=== PATIENT | male | born 1965 | race Caucasian/White ===

== ENCOUNTER 2021-08-31 09:30 | Outpatient (REF) | payer OTHER, SELFPAY ==
[2021-08-31 11:38] LABS: MANUAL DIFF FLAG NO
[2021-08-31 11:50] LABS: Basophils Absolute Auto 0.1 X10*3/uL (0.0-0.2); Basophils Percent Auto 1.1 % (0-2); Eosinophils Absolute Auto 0.2 X10*3/uL (0.0-0.4); Eosinophils Percent Auto 2.8 % (0-4); Hematocrit 47.2 % (42.0-52.0); Hemoglobin 15.8 g/dl (14.0-18.0); Imm Gran Abs Auto 0.04 X10*3/uL (0.00-0.03); Imm Gran Pct Auto 0.6 % (0.0-0.4); Lymphocytes Absolute Auto 2.5 X10*3/uL (1.2-4.9); Lymphocytes Percent Auto 37.9 % (20-40); Mean Corpuscular HGB Conc 33.5 g/dl (31.0-36.0); Mean Corpuscular Volume 89.7 fL (80.0-98.0); Mean Platelet Volume 9.7 fL (9.4-12.4); Monocytes Absolute Auto 0.7 X10*3/uL (0.1-1.2); Monocytes Percent Auto 10.6 % (2-11); Neutrophils Absolute Auto 3.1 x10*3/uL (2.0-8.3); Platelet Count 352 X10*3/uL (160-400); Red Blood Count 5.26 X10*6/uL (4.60-5.80); Red Cell Distribution Width 12.8 % (11.0-16.0); White Blood Count 6.5 X10*3/uL (4.8-10.8)
[2021-08-31 12:00] LABS: Appearance Urine HAZY; Color Urine YELLOW; Glucose Urine UA NEG (NEG); Leukocyte Esterase Urine NEG (NEG); Nitrite Urine NEG (NEG); PH 5.5 (5.0-8.0); Specific Gravity - Urine >= 1.030 (1.005-1.025); Urine Blood NEG (NEG); Urine Ketones NEG (NEG); Urine Protein NEG (NEG-TRACE)
[2021-08-31 12:12] LABS: Alanine Aminotransferase 33 U/L (0-40); Albumin Level 4.2 g/dL (3.5-5.0); Alkaline Phosphatase 82 U/L (39-117); Anion Gap 14 (12-20); Aspartate Amino Transferase 23 U/L (5-37); Bilirubin Total 0.9 mg/dL (0.0-1.0); Blood Urea Nitrogen 12 mg/dL (9-16); Calcium 9.6 mg/dL (8.4-10.2); Carbon Dioxide 26 mmol/L (22-29); Chloride 102 mmol/L (96-108); Cholesterol 309 mg/dL; Estimated Glomerular Filt Rate > 60; Glucose Fasting 127 mg/dL (60-99); HDL Cholesterol 52 mg/dL; LDL Cholesterol Calculated 218 mg/dl; Potassium 4.6 mmol/L (3.3-5.1); Sodium 137 mmol/L (135-145); Total Protein 7.2 g/dL (6.5-8.0); Triglycerides 199 mg/dL
[2021-08-31 12:24] LABS: Prostate Specific Antigen Scr 1.02 ng/mL (<0.05-4.0); TSH reflex Free T4 2.19 uIU/mL (0.32-4.0)
[2021-08-31 12:26] LABS: Creatinine Urine 166.82 mg/dL; Microalbum/Creatinine Ratio Ur 11.9 ug/mg cr
== END 2021-08-31 09:31 | disposition home or self-care (01) ==
LOC: HO.WFDLDS 09:30
PROVIDERS: Visit Provider Family Medicine
DX: Z00.00 Encounter for general adult medical examination without abnormal findings (principal); Z12.5 Encounter for screening for malignant neoplasm of prostate; I10 Essential (primary) hypertension
CPT/HCPCS: 36415; 80053; 80061; 81003; 82043; 84153; 84443; 85025

== ENCOUNTER → 2021-11-09 11:20 | Outpatient (BNVA) | payer OTHER, SELFPAY | PROVIDERS: PCP Family Medicine; Referring Provider Family Medicine; Visit Provider Nurse Practitioner | DX: G47.33 Obstructive sleep apnea (adult) (pediatric) (principal) ==

== ENCOUNTER 2022-03-15 09:09 | Day surgery (SDC) | payer OTHER, SELFPAY ==
[2022-03-13 09:08] VITALS: BMI 40.3
[2022-03-15 09:27] VITALS: BP 177/85; PULSE 87; RESP 18; TEMP 36.6
--- NOTE | 2022-03-15 09:35 | HO.ANESPROP2 ---
HPI - Anesthesia Eval Consult details Narrative: colon screening and abdominal bloating PMFSH Active Problems Active Problems: All Active Problems (Updated 03/13/22 @ 09:04 by Richelle Hyde RN) Laboratory examination ordered as part of a complete physical examination (Acute) Hypertension (Acute) Hyperlipidemia (Acute) Anxiety (Acute) Screening for colon cancer (Acute) Bloating (Acute) RUMA (obstructive sleep apnea) (Acute) Upper abdominal pain (Acute) Past Medical History Medical History Elevated cholesterol HTN (hypertension) Sleep apnea Family History Family history of problems with anesthesia: No Surgical History Surgical History H/O colonoscopy History of hernia surgery History of orchiectomy History of Problems with Anesthesia: No Social History Social History Housing: House Patient Tobacco Use Status: Never used Tobacco e-Cigarette/Vaping Use: Never Used Second Hand Smoke Exposure: No Use of substances other than those prescribed or required for medical reasons: No Are you DNR?: No Advance Directives: No Advance Directives Information Provided: Yes Advance Directives on File: No service: No Current occupational status: employed Current occupational exposures/hazards: No Cognitive needs: No Hearing needs: No Vision needs: No Meds Allergies Allergy/AdvReac Type Severity Reaction Status Date / Time No Known Allergies Allergy Verified 11/09/21 11:27 Active Medications: Current Medications Lactated Ringer's (Lr) 1,000 mls @ 50 mls/hr IVCONT .Q20H [facility] Home Medications Medication Instructions Recorded Confirmed Last Taken Type atorvastatin 20 mg tablet 20 mg PO DAILY 08/04/21 Unknown History clonazepam 0.5 mg tablet 0.5 mg PO TID PRN 08/04/21 Unknown History duloxetine 60 mg capsule,delayed 60 mg PO DAILY 08/04/21 Unknown History release lorazepam 1 mg tablet (Ativan) 1 mg PO DAILY PRN 08/04/21 Unknown History Exam Exam Date and Time: March 15, 2022 0935 Height,Weight and Vital Signs: Height 5 ft 10 in Weight 127.459 kg Airway Mallampati Class: IV TM Dist: >3cm Neck ROM: Limited Loose/Missing/Broken Teeth: No Heart: rrr+[id number] Lungs: cta b/l Assessment and Plan Assessment Anesthesia Assessment: Anesthesia Plan Discussed and Chart Reviewed Final Anesthetic Review Family History of Problems with Anesthesia: No History of Problems with Anesthesia: No NPO: Yes ASA Class: III Final Preanesthetic Review: No Changes in Pt Med Stat, Meds/Allgs Chart Reviewed, Consent Obtained/Reviewed and Anes Risks/Benef Reviewed Patient Risk: High Procedure Risk: Intermediate Assessment/Block/Sedation in SS: Assess/Block/Sedation-SS Anesthetic Plan Anesthetic Plan: MAC: and Agree w/ Assess. and Plan Disposition: Standard PACU
[2022-03-15] MEDS: Lactated Ringers 1,000 ML 50 ML IVCONT (09:39)
--- NOTE | 2022-03-15 09:42 | MHC.SHP ---
Pre-Procedural Eval Section A Date of Service: 03/15/22 Section B Chief Complaint: screening Details of Present Illness: father with crc also upper abdominal discomfort Relevant Family History (Specify if Yes): Yes Relevant Social History: None Present Medications: see Short Stay Collaborative assessment Medical History: Significant History (Elevated cholesterol HTN (hypertension) Sleep apnea) History of Previous Operations: Relevant previous surgery/procedure and date(s) (H/O colonoscopy History of hernia surgery History of orchiectomy) Allergies: Allergies Allergy/AdvReac Type Severity Reaction Status Date / Time No Known Allergies Allergy Verified 11/09/21 11:27 Review of Systems Sugical H&P ROS: Negative: Constitution, Cardiovascular, Respiratory, Neurological, Psychiatric, Hem-Onc, Allergic/Immunologic, Gastrointestinal, Genitourinary, Musculoskeletal, Integumentary, Endocrine and Eyes/Ears/Nose/Throat Exam Surgical H&P Exam: Normal: HEENT, Normal: Heart, Normal: Lungs, Normal: Extremities, Normal: Abdomen, Normal: Skin and Normal: Neurological Exam Comment: high BMI Plan Diagnosis/Plan: Unchanged I have reviewed the history and physical and performed a pertinent physical examination on my patient. No changes have occurred unless specified. EGd for assessment upper abdominal discomfort and gas
--- NOTE | 2022-03-15 09:44 | W.PM.OPN ---
Operative Note Operative Note Date of Service: 03/15/22 Narrative: Operative Information Procedure Description: EGD, Colonoscopy Indication: upper abdominal discomfort and colon screening, pos Fh of cRC Anesthesia: MAC FLEXIBLE TRANSORAL UPPER GASTROINTESTINAL ENDOSCOPY AND COLONOSCOPY PROCEDURE NOTE UPPER ENDOSCOPY Consent: Indications for the procedure and potential complications of bleeding, perforation, reaction to medications and missed diagnosis were discussed with the patient and informed consent was obtained. Instrument: Olympus GIF H 190 J mid size upper endoscope Monitoring: Vital signs and clinical assessment, continuous EKG monitoring, Pulse oximetry, Carbon Dioxide monitoring and blood pressure monitoring were done throughout the procedure. Procedure: The patient was placed in the left lateral decubitis position and pre-procedure medications were administered and a bite block was placed. The endoscope was inserted into the mouth and advanced under direct vision to the third part of duodenum. A careful inspection was made as the upper endoscope was withdrawn including a retroflexed examination of the proximal stomach; Findings and interventions are described below. Findings: Larynx:normal Esophagus: GE junction at 45 cm, diaphragm hiatus at 45 cm, bogginess and erythema at GEJ consistent with esophagitis, bx taken as well as from distal esophagus Stomach: Patchy erythematous and granular mucosa. Biopsies were obtained. Grade 2 flap valve on retroflexed examination of the cardia. Duodenum: Normal bulb and descending duodenum, bx taken Intervention: Biopsies as noted above COLONOSCOPY Instrument: Olympus variable stiffness adult scope 190L Colonoscopy Monitoring: Vital signs and clinical assessment, continuous EKG monitoring, Pulse oximetry, Carbon Dioxide monitoring and blood pressure monitoring were done throughout the procedure. Colon withdrawal time was 10 minutes. Procedure: The patient was placed in the left lateral decubitis position and pre-procedure medications were administered. After a digital rectal examination of the ano-rectum, the video colonoscope was inserted into the rectum and advanced through the colon to the cecum/TI. The colonoscope was slowly withdrawn in a retrograde panoramic fashion and the colon mucosa was carefully examined including a retroflexed view of the rectum. Findings and interventions are described below. Procedure Difficulty: Findings: Terminal Ileum-normal Cecum:normal Ascending Colon: normal Transverse Colon -normal Descending Colon: 10 mm sessile polyp removed with cold snare Sigmoid Colon: mdoerate diverticulosis Rectum: Retroflexion with small internal hemorrhoids, grade I Anorectum - normal Colon preparation: [place] Bowel Preparation Scale Right colon; 2 Transverse colon: 2 Left colon; 2 (0 = Unprepared colon segment with mucosa not seen due to solid stool that cannot be cleared. 1 = Portion of mucosa of the colon segment seen, but other areas of the colon segment not well seen due to staining, residual stool and/or opaque liquid. 2 = Minor amount of residual staining, small fragments of stool and/or opaque liquid, but mucosa of colon segment seen well. 3 = Entire mucosa of colon segment seen well with no residual staining, small fragments of stool or opaque liquid) Impression and Post Procedure Diagnosis: Endoscopy Findings: gastritis esophagitis Colonoscopy Findings: polyp internal hemorrhoids diverticular disease Plan: Await Pathology results Repeat Colonoscopy in 5 years due to polyp and FH of CRC or earlier if clinically indicated High fiber diet leaflet avoid straining at stool, epsom salts and sitz bath, anusol supps or cream reflux precautions Above findings were reviewed with the patient and relevant handouts were provided if indicated.
[2022-03-15 10:22] VITALS: BP 176/98; PULSE 90; RESP 16; TEMP 36.2; O2SAT 100
[2022-03-15 10:37] VITALS: BP 170/96; PULSE 90; RESP 16; O2SAT 96
[2022-03-15 10:52] VITALS: BP 171/95; PULSE 87; RESP 16; TEMP 36.2; O2SAT 97
== END 2022-03-15 11:19 | disposition home or self-care (01) ==
PROVIDERS: PCP Family Medicine; Visit Provider Internal Medicine Gastroenterology
PROC: (CPT 45385; principal; 2022-03-15 10:00)
DX: Z12.11 Encounter for screening for malignant neoplasm of colon (principal); Z80.0 Family history of malignant neoplasm of digestive organs; D12.4 Benign neoplasm of descending colon; K57.30 Diverticulosis of large intestine without perforation or abscess without bleeding; K64.0 First degree hemorrhoids; K29.50 Unspecified chronic gastritis without bleeding; K29.80 Duodenitis without bleeding; E78.00 Pure hypercholesterolemia, unspecified; I10 Essential (primary) hypertension; G47.33 Obstructive sleep apnea (adult) (pediatric); K44.9 Diaphragmatic hernia without obstruction or gangrene; E78.5 Hyperlipidemia, unspecified; F41.1 Generalized anxiety disorder; Z79.899 Other long term (current) drug therapy
CPT/HCPCS: 45385; 43239; 88305; 88342; J2250

== ENCOUNTER 2023-01-02 11:33 | Outpatient (AMB) | payer OTHER, SELFPAY ==
[2023-01-02 11:38] VITALS: BP 130/68; PULSE 88; RESP 12; TEMP 36.3; O2SAT 97; BMI 40.9
--- NOTE | 2023-01-02 11:38 | A.OFFPC_ITS ---
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 Accompanied by: Self / Same As Patient Allergies No Known Allergies Allergy (Verified 01/02/23 11:45) Medication List - Last Reconciled 01/02/23 by Blaine Rausch MD atorvastatin 40 mg PO DAILY 30 days clonazepam 0.5 mg PO TID PRN duloxetine 60 mg PO DAILY famotidine (Pepcid) 40 mg PO BEDTIME irbesartan-hydrochlorothiazide 300-12.5 mg 1 tab PO DAILY metformin 500 mg PO BID metronidazole 500 mg PO TID 10 days omeprazole 20 mg PO DAILY 30 days risperidone 1 mg PO BEDTIME Tobacco use date assessed: 07/24/22 Dental Screening Dental Screen Date: 01/02/23 Did you have a dental visit in the last 12 months?: No Did you have a dental problem in the last 6 months where you did not have access to dental care?: No Was dental information given to patient?: Patient has dentist HPI f/u hypertension and diabetes 2 HPI Details 57 y/o male presents to f/u hypertension and diabetes. New diagnosis of diabetes and was started on metformin 500mg b.i.d. daily. A1c today 01/02/23 is 7.7%. He reports he has not been taking metformin twice a day as he could not get used to the routine. Had added HCTZ to his regimen as his blood pressure was still too high. Blood pressure today is 130/68. He is on irbesartan-HCTZ 300-12.5mg daily. [facility] Medical History Elevated cholesterol HTN (hypertension) Sleep apnea Surgical History H/O colonoscopy History of hernia surgery History of orchiectomy Family History (Updated 09/26/22 @ 10:59 by Ivy Finley CMA) Paternal Grandmother FH: mental illness Social History (Reviewed 05/10/22 @ 09:16 by JUJU Gill Housing: House Patient Tobacco Use Status: Never used Tobacco e-Cigarette/Vaping Use: Never Used Second Hand Smoke Exposure: No service: No Current occupational status: employed Current occupation: Environmental consulting Current occupational exposures/hazards: No Cognitive needs: No Hearing needs: No Vision needs: No Questionnaire PHQ-9 Over the last 2 weeks, how often have you been bothered by any of the following problems? 1. Little interest or pleasure in doing things: not at all 2. Feeling down, depressed, or hopeless: not at all 3. Trouble falling or staying asleep, or sleeping too much: several days 4. Feeling tired or having little energy: several days 5. Poor appetite or overeating: not at all 6. Feeling bad about yourself - or that you are a failure or have let yourself or your family down: not at all 7. Trouble concentrating on things, such as reading the newspaper or watching television: not at all 8. Moving or speaking so slowly that other people could have noticed. Or the opposite - being so fidgety or restless that you have been moving around a lot more than usual: not at all 9. Thoughts that you would be better off or of hurting yourself in some way: not at all Total score: 2 Source: Developed by Drs. Henry Man, Lakisha Kendall, Abel Silva and colleagues, with an educational marlyn from [employer]. Thrive Questionnaire Date Thrive assessed: 01/02/23 ANNIA-7 AMB Questionnaire ANNIA-7 Date ANNIA - 7 assessed: 01/02/23 Feeling nervous, anxious, or on edge: 2 = More than half the days Not being able to stop or control worryin = Several days Worrying too much about different things: 1 = Several days Trouble relaxin = Several days Being so restless that it is hard to sit still: 0 = Not at all Becoming easily annoyed or irritable: 0 = Not at all Feeling afraid as if something awful might happen: 1 = Several days Total ANNIA-7 score (0-4 normal; 5-9 mild; 10-14 moderate; 15-21 severe): 6 Source: Developed by Drs. Henry L. MagdaLakisha hood, Abel Silva and colleagues, with an educational marlyn from [employer]. Physical exam (Primary Care) Vital Signs: Last Vital Signs Temp 97.4 F 01/02/23 11:38 Pulse 88 01/02/23 11:38 Resp 12 01/02/23 11:38 BP 130/68 01/02/23 11:38 Pulse Ox 97 01/02/23 11:38 Oxygen Delivery Method Room Air 01/02/23 11:38 BMI result Body Mass Index 40.9 Tobacco/Smoking Status: Tobacco use Status Tobacco use date assessed 07/24/22 01/02/23 11:50 Patient Tobacco Use Status Never used Tobacco 01/02/23 11:50 Tobacco use type 05/10/22 09:43 e-Cigarette/Vaping Use Never Used 01/02/23 11:50 PHQ-9: PHQ-9 Score PHQ-9: Total score 2 01/02/23 11:53 Thrive Assessment: Date of Thrive Assessment Date Thrive assessed 01/02/23 01/02/23 11:53 Const Nutritional Appearance: obese Assessment and Plan Assessment & Plan (1) Hypertension: Code(s): I10 - Essential (primary) hypertension Plan: Had increased his irbesartan in his combo pill at his last visit. Blood pressure now controlled. Goal is less than 140/90 Continue current medication regimen (2) Diabetes: Code(s): E11.9 - Type 2 diabetes mellitus without complications Plan: Had increased metoprolol from 500 mg daily to 500 mg b.i.d. at his last visit. He notes that he has still only been taking 500 mg daily because he does not remember to take it twice a day. A1c today 7.7% which is still too high He will take 1000 mg daily in the morning to make his regimen simpler He says he had seen the interlocking tower operator once but they were not unable to complete a full dilated retinal exam and he was to be rescheduled. He says he has not been contacted for a rescheduled appointment. I have asked the office to facilitate this. Orders: Orders Comprehensive [place]. Panel Fast Today Z00.00 - Encounter for general adult medical examination without abnormal findings Lipid Panel Today Z00.00 - Encounter for general adult medical examination without abnormal findings Prostate Specific Antigen Scr Today Z12.5 - Encounter for screening for malignant neoplasm of prostate TSH reflex Free T4 Today Z00.00 - Encounter for general adult medical examination without abnormal findings Microalbumin, Random (w Creat) Today I10 - Essential (primary) hypertension Complete Blood Count Auto Diff Today Z00.00 - Encounter for general adult medical examination without abnormal findings UA and rflx microscopic Today Z00.00 - Encounter for general adult medical examination without abnormal findings Coding Level of Care Code Est Pt Level 3 (48302) Diagnoses Hypertension I10 Diabetes E11.9
== END 2023-01-02 12:28 | disposition home or self-care (01) ==
PROVIDERS: Visit Provider Family Medicine
DX: I10 Essential (primary) hypertension (principal); E11.9 Type 2 diabetes mellitus without complications
CPT/HCPCS: 99213

== ENCOUNTER 2023-03-15 11:58 | Outpatient (REF) | payer OTHER, SELFPAY ==
[2023-03-15 14:27] LABS: MANUAL DIFF FLAG NO
[2023-03-15 14:38] LABS: Basophils Absolute Auto 0.1 X10*3/uL (0.0-0.2); Basophils Percent Auto 0.7 % (0-2); Eosinophils Absolute Auto 0.2 X10*3/uL (0.0-0.4); Eosinophils Percent Auto 2.5 % (0-4); Hematocrit 44.9 % (42.0-52.0); Hemoglobin 15.4 g/dl (14.0-18.0); Imm Gran Abs Auto 0.03 X10*3/uL (0.00-0.03); Imm Gran Pct Auto 0.4 % (0.0-0.4); Lymphocytes Absolute Auto 2.7 X10*3/uL (1.2-4.9); Lymphocytes Percent Auto 38.8 % (20-40); Mean Corpuscular HGB Conc 34.3 g/dl (31.0-36.0); Mean Corpuscular Hemoglobin 30.6 pg (27.0-33.0); Mean Corpuscular Volume 89.3 fL (80.0-98.0); Mean Platelet Volume 9.7 fL (9.4-12.4); Monocytes Absolute Auto 0.6 X10*3/uL (0.1-1.2); Monocytes Percent Auto 9.1 % (2-11); Neutrophils Absolute Auto 3.4 x10*3/uL (2.0-8.3); Neutrophils Percent Auto 48.5 % (45-73); Platelet Count 384 X10*3/uL (160-400); Red Blood Count 5.03 X10*6/uL (4.60-5.80); Red Cell Distribution Width 12.2 % (11.0-16.0); White Blood Count 6.9 X10*3/uL (4.8-10.8)
[2023-03-15 14:52] LABS: Appearance Urine Clear; Color Urine Yellow; Glucose Urine UA Negative (Negative); Leukocyte Esterase Urine Negative (Negative); Nitrite Urine Negative (Negative); Urine Blood Negative (Negative); Urine Ketones Negative (Negative); Urine Protein Negative (Neg-Trace)
[2023-03-15 15:05] LABS: Alanine Aminotransferase 50 U/L (0-40); Albumin Level 4.2 g/dL (3.5-5.0); Alkaline Phosphatase 93 U/L (39-117); Anion Gap 14 (12-20); Aspartate Amino Transferase 36 U/L (5-37); Bilirubin Total 0.9 mg/dL (0.0-1.0); Blood Urea Nitrogen 13 mg/dL (9-16); Calcium 9.6 mg/dL (8.4-10.2); Carbon Dioxide 25 mmol/L (22-29); Chloride 102 mmol/L (96-108); Cholesterol 218 mg/dL (<200); Estimated Glomerular Filt Rate > 60; Glucose Fasting 170 mg/dL (60-99); HDL Cholesterol 53 mg/dL (>40); LDL Cholesterol Calculated 129 mg/dL (<100); Sodium 137 mmol/L (135-145); Total Protein 7.3 g/dL (6.5-8.0); Triglycerides 181 mg/dL (<150)
[2023-03-15 15:08] LABS: Prostate Specific Antigen Scr 0.91 ng/mL (<0.05-4.0)
[2023-03-15 15:21] LABS: TSH reflex Free T4 1.68 uIU/mL (0.32-4.0)
[2023-03-15 15:32] LABS: Creatinine Urine 156.01 mg/dL; Microalbum/Creatinine Ratio Ur 12.8 ug/mg cr (<30)
== END 2023-03-15 11:59 | disposition home or self-care (01) ==
LOC: HO.WFDLDS 11:58
PROVIDERS: Visit Provider Family Medicine
DX: Z00.00 Encounter for general adult medical examination without abnormal findings (principal); Z12.5 Encounter for screening for malignant neoplasm of prostate; I10 Essential (primary) hypertension
CPT/HCPCS: 36415; 80053; 80061; 81003; 82043; 82570; 84153; 84443; 85025

== ENCOUNTER 2023-05-07 09:05 | Outpatient (AMB) | payer OTHER, SELFPAY ==
[2023-05-07 09:08] VITALS: BP 128/72; PULSE 88; O2SAT 95; BMI 41.2
--- NOTE | 2023-05-07 09:08 | A.OFFPC_ITS ---
Vital Signs 05/07/23 09:08 Height 5 ft 10 in Weight 287 lb 8 oz BMI 41.2 BP 128/72 Blood Pressure Location Lt brachial Position Sitting Pulse 88 Pulse Source Pulse Oximeter Pulse Oximetry (%) 95 Oxygen Delivery Method Room Air Intake Visit Reasons: CPE with f/u labs and health maintenance Intake Note: Patient is here for physical today. Patient is also requesting flu shot today. Allergies No Known Allergies Allergy (Verified 05/07/23 09:10) Tobacco use date assessed: 05/07/23 Dental Screening Did you have a dental visit in the last 12 months?: No Did you have a dental problem in the last 6 months where you did not have access to dental care?: No Was dental information given to patient?: Patient has dentist HPI CPE with f/u labs and health maintenance HPI Details 58 y/o male presents for a CPE with f/u labs and health maintenance. Labs were drawn 03/15/23. Reviewed labs with pt. Elevated ALT of 50. Triglycerides 181. TC 218. LDL 129. HDL 53. Last A1c 01/02/23 7.7%. He is on metformin 500mg b.i.d. A1c today 05/07/23 7.4%. Blood pressure today 128/72. He is on irbesartan-hydrochlorothiazide 300-12.5mg daily. Pt reports chest pain. [facility] Medical History Sleep apnea Elevated cholesterol HTN (hypertension) Surgical History H/O colonoscopy History of orchiectomy History of hernia surgery Family History Paternal Grandmother FH: mental illness Social History Housing: House Patient Tobacco Use Status: Never used Tobacco e-Cigarette/Vaping Use: Never Used Second Hand Smoke Exposure: No service: No Current occupational status: employed Current occupation: Environmental consulting Current occupational exposures/hazards: No Cognitive needs: No Hearing needs: No Vision needs: No Questionnaire PHQ-9 Over the last 2 weeks, how often have you been bothered by any of the following problems? 1. Little interest or pleasure in doing things: not at all 2. Feeling down, depressed, or hopeless: not at all 3. Trouble falling or staying asleep, or sleeping too much: not at all 4. Feeling tired or having little energy: not at all 5. Poor appetite or overeating: several days 6. Feeling bad about yourself - or that you are a failure or have let yourself or your family down: not at all 7. Trouble concentrating on things, such as reading the newspaper or watching television: not at all 8. Moving or speaking so slowly that other people could have noticed. Or the opposite - being so fidgety or restless that you have been moving around a lot more than usual: not at all 9. Thoughts that you would be better off or of hurting yourself in some way: not at all Total score: 1 Source: Developed by Drs. Henry Man, Lakisha Kendall, Abel Silva and colleagues, with an educational marlyn from [employer] ([employer]). Thrive Questionnaire Date Thrive assessed: 05/07/23 I am a: Patient What is your living situation today?: I have a steady place to live Within the past 12 months, did the food you bought not last and you didn't have the money to get more?: Never true Within the past 12 months, did you worry whether your food would run out before you got money to buy more?: Never true Do you have trouble paying for medicines?: No Do you have trouble getting transportation to medical appointments?: No Do you have trouble paying your heating and electricity bill?: No Do you have trouble taking care of your child, family member or friend?: No Do you have trouble with day-to-day activities such as bathing, preparing meals, shopping, managing finances, etc.?: No Are you currently unemployed and looking for a job?: No Are you interested in more education?: No ANNIA-7 AMB Questionnaire ANNIA-7 Date ANNIA - 7 assessed: 05/07/23 Feeling nervous, anxious, or on edge: 1 = Several days Not being able to stop or control worryin = Not at all Worrying too much about different things: 0 = Not at all Trouble relaxin = Not at all Being so restless that it is hard to sit still: 0 = Not at all Becoming easily annoyed or irritable: 0 = Not at all Feeling afraid as if something awful might happen: 1 = Several days Total ANNIA-7 score (0-4 normal; 5-9 mild; 10-14 moderate; 15-21 severe): 2 Source: Developed by Drs. Henry Man, Lakisha Kendall, Abel Silva and colleagues, with an educational marlyn from [employer] ([employer]). Review of Systems Const Denies chills, Denies fatigue, Denies fever(s), Denies headache(s) and Denies weakness Eyes Denies change in vision ENT Denies dizziness, Denies headache(s), Denies hearing loss, Denies nasal congestion, Denies sinus pain, Denies sinus pressure and Denies sore throat Card Reports chest pain, Denies lightheadedness, Denies dyspnea and Denies other (palpitations) Resp Denies cough, Denies dyspnea and Denies wheezing GI Denies abdominal pain, Denies melena, Denies hematochezia, Denies change in bowel habits, Denies dyspepsia and Denies nausea Denies hematuria and Denies dysuria Musc Denies abnormal gait, Denies myalgias, Denies arthralgias, Denies numbness and Denies tingling Skin/Breast Denies rash, Denies unusual bruising and Denies wounds Neuro Denies abnormal gait, Denies dizziness, Denies headache(s), Denies memory loss, Denies numbness, Denies Sensory deficit (Neuro), Denies tingling and Denies weakness Psych Denies anxiety, Denies depression and Denies memory loss Endo Denies cold intolerance, Denies fatigue, Denies heat intolerance, Denies polydipsia and Denies polyuria Jeremy/Lymph Denies easy bleeding and Denies easy bruising Aller/Immun Denies wheezing Physical exam (Primary Care) Vital Signs: Last Vital Signs Pulse 88 05/07/23 09:08 BP 128/72 05/07/23 09:08 Pulse Ox 95 05/07/23 09:08 Oxygen Delivery Method Room Air 05/07/23 09:08 BMI result Body Mass Index 41.2 Tobacco/Smoking Status: Tobacco use Status Tobacco use date assessed 05/07/23 05/07/23 09:13 Patient Tobacco Use Status Never used Tobacco 05/07/23 09:13 Tobacco use type 05/10/22 09:43 e-Cigarette/Vaping Use Never Used 05/07/23 09:13 PHQ-9: PHQ-9 Score PHQ-9: Total score 1 05/07/23 09:43 Thrive Assessment: Date of Thrive Assessment Date Thrive assessed 05/07/23 05/07/23 09:21 Const General: no acute distress, well developed, alert and awake Nutritional Appearance: obese morbidly obese Orientation/consciousness: patient oriented x3 HENMT Head: Yes normocephalic and Yes atraumatic Ears: hearing grossly normal bilaterally and TM's normal bilaterally General nose exam: Normal external nose present and Normal nares present Mouth: Normal oral and palatal mucosa present and moist mucous membranes Teeth and gingiva: dentition normal Throat: Yes posterior oropharynx normal Eyes General: appearance normal, both eyes and all related structures Pupils: Equal, round and reactive pupils present and Pupil accommodation reflex normal EOM: EOMs intact bilaterally Neck Neck: Yes normal visual inspection, Yes no lymphadenopathy and Yes trachea midline Thyroid: Thyroid normal Carotids: no bruits Lymphatic: no lymphadenopathy noted Chest Chest palpation & inspection: normal inspection of the chest Resp Effort & Inspection: normal respiratory effort Auscultation: clear to auscultation bilaterally Cardio Rate: regular rate Rhythm: regular rhythm Heart sounds: S1 normal heart sound present, S2 normal heart sound present, no gallops, no murmurs and no rubs Bruits: no abdominal aortic bruits and no carotid bruits GI Palpation (GI): No Abdominal aortic bruit present, Soft to palpation, nontender, No hepatosplenomegaly present and No Rebound tenderness present Auscultation: normal bowel sounds General: Yes no CVA tenderness Back/Spine/Pelvis Back: no CVA tenderness Cervical Spine: cervical ROM normal and No Cervical spine tenderness Thoracic/Lumbar Spine: thoraco-lumbar ROM normal, No pain with thoraco-lumbar ROM, No thoracic spinal tenderness and No lumbar spinal tenderness Skin Lesions: no lesions Rashes: no rashes Trauma: no lacerations or abrasions Wounds: no wounds Nails: normal Neuro General: patient oriented x3 Cranial nerves: Yes Equal, round and reactive pupils present Cognition (Neuro): normal cognition Gait exam (Neuro): Normal gait present Motor exam (neuro): 5/5 motor strength present throughout Sensory Exam: No Sensory deficit (Neuro) Deep tendon reflexes (DTR's): Right patellar reflex intensity grade: 2+ and Left patellar reflex intensity grade: 2+ Extrem General: Yes normal to inspection and No edema Psych Appearance: grossly normal Affect: normal affect Attitude: cooperative Thought process: Normal thought process present Office Procedures Flu Questionnaire Does the patient have a severe egg allergy?: No Does the patient have severe life threatening allergies?: No Does the patient have a fever or illness today?: No Has the patient ever had Guillain-[place] Syndrome?: No Has the patient ever had any past reaction to a flu shot?: No Results AMB Hemoglobin A1c AMB Hemoglobin A1c 7.4 % Last Edit by Ivy Finley CMA on 05/07/23 09:31 Immunizations flu vacc [id number] 6mos up(PF) 60 mcg(15 mcgx4)/0.5 mL IM syringe Performing Provider: Blaine Rausch MD Performing Location: [facility] Administered by: Gianna Yoder RN on 05/07/23 10:00 Dose Route Admin Location Dispensed Lot Number Expiration Date [employer]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with?active?lifestyle?and?plenty?of?exercise (2) Chest pain: Code(s): R07.9 - Chest pain, unspecified Plan: Discomfort?with?exertion/walking?or?going?up?stairs EKG normal?sinus?rhythm,?normal?axis,?no?hypertrophy,?nonspecific?T- wave?changes. Will?get?stress?test?and?if?positive,?refer?to?Cardiology (3) Diabetes: Code(s): E11.9 - Type 2 diabetes mellitus without complications Plan: A1c?still?shows?poor?control. Add?Trulicity Continue?metformin?500?mg?daily Will?request?eye?exam?note (4) Immunization counseling: Code(s): Z71.85 - Encounter for immunization safety counseling Plan: Gave?flu?shot?today (5) Hypertension: Code(s): I10 - Essential (primary) hypertension Plan: Blood?pressure?is?controlled.??Goal?is?less?than?140/90 Continue?current?medication?regimen (6) Cerumen debris on tympanic membrane: Code(s): H61.20 - Impacted cerumen, unspecified ear Plan: He?will?try?Debrox?drops (7) Elevated ALT measurement: Code(s): R74.01 - Elevation of levels of liver transaminase levels Plan: Will?repeat?this?in?a?few?months.??If?the?same?or?higher,?will?check?ultrasound? of?liver (8) Hyperlipidemia: Code(s): E78.5 - Hyperlipidemia, unspecified Plan: LDL?cholesterol?is?too?high. Increase?atorvastatin (9) Screening for prostate cancer: Code(s): Z12.5 - Encounter for screening for malignant neoplasm of prostate Plan: PSA?was?within?normal?limits (10) Screening for colon cancer: Code(s): Z12.11 - Encounter for screening for malignant neoplasm of colon Plan: Followed?by??Diamante?at?[facility] [place] Up-to-date Orders: Orders AMB Hemoglobin A1c Today Z13.9 - Encounter for screening, unspecified Comprehensive Doyle. Panel Fast Today R74.01 - Elevation of levels of liver transaminase levels, Z00.00 - Encounter for general adult medical examination without abnormal findings Lipid Panel Today E78.5 - Hyperlipidemia, unspecified, Z00.00 - Encounter for general adult medical examination without abnormal findings AMB EKG-In Office Today R07.9 - Chest pain, unspecified Influenza [id number] Immunization Today Z23 - Encounter for immunization CA stress test Today R07.9 - Chest pain, unspecified Medications: New dulaglutide (Trulicity) 0.75 mg (0.5 mL) subcut QWEEK 28 days 2 mL 2RF Changed From atorvastatin 40 mg PO DAILY 90 tabs 1RF To atorvastatin 80 mg PO DAILY 90 days 90 tabs 2RF Coding Level of Care Code Est Pt Level 3 (21561) Est Pt Prev Care 40-64y(09627) Diagnoses Adult general medical exam Z00.00 Chest pain R07.9 Diabetes E11.9 Immunization counseling Z71.85 Hypertension I10 Cerumen debris on tympanic membrane H61.20 Elevated ALT measurement R74.01 Hyperlipidemia E78.5 Screening for prostate cancer Z12.5 Screening for colon cancer Z12.11
== END 2023-05-07 10:15 | disposition home or self-care (01) ==
PROVIDERS: PCP Family Medicine; Visit Provider Family Medicine
DX: Z00.00 Encounter for general adult medical examination without abnormal findings (principal); R07.9 Chest pain, unspecified; E11.9 Type 2 diabetes mellitus without complications; Z71.85 Encounter for immunization safety counseling; I10 Essential (primary) hypertension; H61.20 Impacted cerumen, unspecified ear; R74.01 Elevation of levels of liver transaminase levels; E78.5 Hyperlipidemia, unspecified; Z12.5 Encounter for screening for malignant neoplasm of prostate; Z12.11 Encounter for screening for malignant neoplasm of colon; Z23 Encounter for immunization; Z13.9 Encounter for screening, unspecified
CPT/HCPCS: 83036; 90471; 90686; 99213; 99396

== ENCOUNTER → 2023-07-02 10:07 | Outpatient (REF) | payer OTHER, SELFPAY ==
--- NOTE | 2023-07-02 10:10 | CA_ITS ---
Acquisition Time: 2023-07-02 11:05:25 Total Exercise Time: 00:06:12 Test Indications: R07.9 - Chest pain, unspecified Medications: Protocol: ANGELIA Max HR: 141 BPM 86% of Pred: 163 BPM Max BP: 210/074 mmHG Max Work Load: 7.3 METS Exercise stress test exercise 6 min 12 sec of Angelia protocol achieving 85% MPHR, with moderate SOB, no chest discomfort, without arrhtyhmias, with resting HTN and exaggerated response - max bp 210/74, without EKG changes. Breathing returned to normal with rest. BP at test end 142/80. Test reviewed with Dr. Martinez New test due to emergency button on treadmill accidently hit during test. PT original EKG sinus rhythm rate 92 bpm. BP resting 178/102. Rechecked after rest 144/88. Exercised abiout 3 min. without arrhythmias or EKG changes.BP at peak 182/80 Referred By: Blaine Rausch Overread By: Gita Campbell
== END ==
LOC: HO.CARD 10:07
PROVIDERS: PCP Family Medicine; Visit Provider Family Medicine
DX: R07.9 Chest pain, unspecified (principal)
CPT/HCPCS: 93017

== ENCOUNTER → 2023-07-02 10:10 | Outpatient (BNV) | payer OTHER, SELFPAY | PROVIDERS: PCP Family Medicine; Visit Provider Nurse Practitioner | DX: R07.9 Chest pain, unspecified (principal) | CPT/HCPCS: 93016; 93018 ==

== ENCOUNTER 2023-09-19 12:50 | Outpatient (AMB) | payer OTHER, SELFPAY ==
[2023-09-19 13:00] VITALS: BP 138/84; PULSE 75; BMI 39.2
--- NOTE | 2023-09-19 13:00 | A.OFFVIS_ITS ---
Intake Vital Signs 09/19/23 13:00 Height 5 ft 10 in Weight 273 lb 5.971 oz BMI 39.2 BP 138/84 Blood Pressure Location Lt brachial Position Sitting Pulse 75 Intake Visit Reasons: [employer]/Miracle/ Chest pain Intake Note: New patient c/o ache in chest with walking Home Visit Field Care Manager Required: No Allergies No Known Allergies Allergy (Verified 05/07/23 09:10) Medication List - Last Reconciled 09/19/23 by Michael Martinez MD atorvastatin 80 mg PO DAILY 90 days clonazepam 0.5 mg PO TID PRN dulaglutide (Trulicity) 0.75 mg (0.5 mL) subcut QWEEK 28 days duloxetine 60 mg PO DAILY famotidine (Pepcid) 40 mg PO BEDTIME irbesartan-hydrochlorothiazide 300-12.5 mg 1 tab PO DAILY metformin 500 mg PO BID metronidazole 500 mg PO TID omeprazole 20 mg PO DAILY 30 days risperidone 1 mg PO BEDTIME HPI HPI Comments History of Present Illness Details Thank you for referring Isaias in cardiology consultation today for exertional chest discomfort. He has a 58-year-old male with longstanding history of familial hyperlipidemia has been on statin therapy for many years, hypertension, obstructive sleep apnea on CPAP therapy, recently diagnosed diabetes about a year ago and obesity. He said over the last year or so he has been noticing when he goes out for a walk and walks about a block at a good pace he would start developing discomfort/pressure in his retrosternal area. He will continue to walk but slow down his pace. Symptoms would then sometimes dissipate but sometimes continue. Sometimes it would get intense. He therefore underwent a stress test about a month ago which at moderate workload and heart rate of about 86 beats per minute did not show any EKG changes. Although his resting blood pressure is slightly elevated when he came in as he had not taken his blood pressure medication and sadaf to about 210 with slightly exaggerated blood pressure response. He says overall his blood pressure is well controlled. He denies any other symptoms. Denies any prolonged palpitation irregular heartbeat. Denies any lightheadedness, syncope. Denies any heart failure symptoms of orthopnea, PND, leg edema. Takes all his medications. Last LDL of 129 mg/dL. His LDL was 218 in August of 2021. [facility] Medical History (Updated 09/19/23 @ 13:36 by Michael Martinez MD) Sleep apnea Elevated cholesterol HTN (hypertension) Surgical History H/O colonoscopy History of orchiectomy History of hernia surgery Family History Paternal Grandmother FH: mental illness Social History Housing: House Patient Tobacco Use Status: Never used Tobacco e-Cigarette/Vaping Use: Never Used Second Hand Smoke Exposure: No service: No Current occupational status: employed Current occupation: Environmental consulting Current occupational exposures/hazards: No Cognitive needs: No Hearing needs: No Vision needs: No Review of Systems Const Denies chills, Denies daytime sleepiness, Denies fatigue, Denies fever(s), Denies frequent falls, Denies poor appetite, Denies snoring, Denies stops breathing during sleep, Denies weakness, Denies weight gain and Denies weight loss Eyes Denies loss of vision ENT Denies dizziness and Denies hearing loss Card Denies chest pain, Denies claudication, Denies leg edema, Denies lightheadedness, Denies palpitations, Denies dyspnea, Denies dyspnea on exertion and Denies orthopnea Resp Denies cough, Denies excessive phlegm production, Denies dyspnea, Denies dyspnea on exertion, Denies snoring and Denies wheezing GI Denies abdominal pain, Denies hematochezia, Denies change in bowel habits, Denies nausea and Denies vomiting Denies dysuria and Denies urinary frequency Musc Denies arthralgias, Denies muscle weakness, Denies numbness and Denies other (frequent falls) Skin/Breast Denies nail changes and Denies rash Neuro Denies Abnormal speech present, Denies dizziness, Denies frequent falls, Denies loss of vision, Denies memory loss, Denies numbness and Denies weakness Psych Denies depression and Denies memory loss Endo Denies fatigue and Denies palpitations Jeremy/Lymph Reports easy bruising and Reports other (anemia) Aller/Immun Denies wheezing Physical Exam Vital Signs: Last Vital Signs Pulse 75 09/19/23 13:00 BP 138/84 09/19/23 13:00 BMI result Body Mass Index 39.2 Const General: cooperative, comfortable, no acute distress, alert, awake and Physically active Nutritional Appearance: obese Orientation/consciousness: patient oriented x3 Limitations: no limitations HEENT Head: Yes normocephalic and Yes atraumatic Neck Neck: Yes trachea midline, Yes supple and Yes no JVD Resp Effort & Inspection: normal respiratory effort Auscultation: clear to auscultation bilaterally Cardio Jugular venous distension: no JVD Palpation: normal PMI Rate: regular rate Rhythm: regular rhythm Heart sounds: S1 normal heart sound present, S2 normal heart sound present, no click, no gallops, no murmurs and no rubs GI Auscultation: normal bowel sounds Skin General skin exam: no rashes or lesions noted Neuro General: patient oriented x3 and no focal motor deficits Speech: No Abnormal speech present Extrem General: Yes no clubbing, cyanosis or edema Psych Appearance: grossly normal Office Procedures EKG Details: EKG shows normal sinus rhythm with nonspecific T-wave changes [id number], Complete Assessment & Plan Assessment & Plan (1) Exertional chest pain: Code(s): R07.9 - Chest pain, unspecified Plan: Exertional chest pain in this middle-aged man with multiple risk factors including marked hyperlipidemia for a long time, family history of premature coronary artery disease in his father, hypertension, obesity, diabetes. Likelihood of obstructive coronary artery disease is high although his recent stress test was not suggestive of any significant ischemia. I would suggest an echocardiogram to well for hypertensive heart disease and/or other possible etiologies such as pulmonary hypertension valvular heart disease that could explain his exertional chest pain. He also could be related to elevated blood pressure with exercise. I would suggest him to undergo an echocardiogram in near future to assess for non coronary causes of exertional chest pain. Also suggest a coronary calcium score to assess for presence of atherosclerosis. If he has extensive atherosclerosis with markedly elevated calcium score would suggest invasive angiography to further assess for the same. His LDL although has improved on high-intensity statin therapy is not well optimized. If he has extensive coronary calcification will pursue adjuvant therapy with PCSK9 inhibitor therapy. (2) Hypertension: Code(s): I10 - Essential (primary) hypertension Plan: Hypertension which is currently well optimized on current treatment. Continue current treatment option. Advised to monitor blood pressure intermittently at home. Target goal blood pressure less than 130/84 at all times. Obtain echocardiogram near future. Encouraged to continue to participate in regular physical activity and weight loss program. Continue CPAP therapy. Will follow up in the clinic in 4 weeks time, sooner p.r.n.. Thank you for allowing me to partake in his care Orders: Orders CA echo transthoracic complete Today R07.9 - Chest pain, unspecified CT Coronary Calcium Score 1 Week R07.9 - Chest pain, unspecified Medications: Changed From metronidazole 500 mg PO TID 10 days 30 tabs 0RF To metronidazole 500 mg PO TID Coding Level of Care Code New Pt Level 4 (90421) Diagnoses Exertional chest pain R07.9 Hypertension I10 CPT Codes EKG - CPT: [id number], Complete ([id number])
== END 2023-09-19 13:31 | disposition home or self-care (01) ==
PROVIDERS: PCP Family Medicine; Visit Provider Internal Medicine Cardiovascular Disease
DX: R07.9 Chest pain, unspecified (principal); I10 Essential (primary) hypertension
CPT/HCPCS: 93010; 99204

== ENCOUNTER → 2023-09-19 12:50 | Outpatient (BNVA) | payer OTHER, SELFPAY | PROVIDERS: PCP Family Medicine; Visit Provider Internal Medicine Cardiovascular Disease | DX: R07.9 Chest pain, unspecified (principal); I10 Essential (primary) hypertension; Z79.899 Other long term (current) drug therapy | CPT/HCPCS: 93005 ==

== ENCOUNTER → 2023-10-09 14:06 | Outpatient (REF) | payer OTHER, SELFPAY ==
--- NOTE | 2023-10-09 14:09 | CA_ITS ---
Transthoracic Echocardiogram Patient (Last, First, Middle): Isaias Marks A Gender: Male Date of : 1965 Age: 58 Procedure Date: 10/09/2023 Procedure Type: Transthoracic Echocardiogram Location: OP Height: 177.8 cm Weight: 124.74 kg BSA: 2.39 m2 Heart Rate: bpm BP: 146 / 72 mmHg Orthopedic Mechanic: TO Referring MD: Michael Martinez MD Symptoms: R07.9 - Chest pain, unspecified Study Quality: Fair/Contrast ECG Rhythm: Sinus Conclusions: - The left ventricular systolic function is normal. The calculated ejection fraction is 67% by biplane method. - No obvious valvular pathology seen on this study. Findings Procedure Information Contrast agent, definity, is being given per protocol without apparent complications. Left Ventricle Normal left ventricular cavity size. The left ventricular systolic function is normal. The calculated ejection fraction is 67% by biplane method. There is no evidence of regional wall motion abnormalities. Diastolic function is normal for age. There is mild septal asymmetric hypertrophy. Right Ventricle Normal right ventricular cavity size and systolic function. Atria Both atria are normal in size. Aortic Valve There is a normal trileaflet aortic valve. There is no aortic valve stenosis. There is no aortic valve regurgitation. Mitral Valve The mitral valve appears normal. There is no mitral valve regurgitation. There is no mitral valve stenosis. Pulmonic Valve The pulmonic valve is likely normal. Tricuspid Valve Normal tricuspid valve structure. There is no tricuspid valve regurgitation. Tricuspid regurgitation envelope is inadequate for calculation of right ventricular systolic pressure. Great Vessels The asc aorta is normal in size. Venous The inferior vena cava is normal in size and collapses greater than 50% with inspiration. Pericardium/Pleural There is no evidence of pericardial effusion. Prior Study Comparison No prior study available for comparison. Recommendations, Care & Conclusions No obvious valvular pathology seen on this study. Measurements 2D Linear Measurements IVSd: 1.32 0.6-0.9/0.6-1.0 cm LVIDd: 4.36 3.9-5.3/4.2-5.9 cm LVIDd Index: 1.82 2.4-3.2/2.2-3.1 cm/m2 LVIDs: 2.83 2.0-3.6 cm LVPWd: 1.01 0.7-1.1 cm LA Diam: 3.30 2.7-3.8/3.0-4.0 cm LAIDs Index: 1.38 1.5-2.3 cm/m2 LV Mass: 225.20 67-162/88-224 g LV Mass Index: 94.23 43-95/49-115 g/m2 LVOT Diam: 2.30 3.0+(-)1.3 cm 2D Systolic Function EF 4C: 67.00 >55% EF 2C: 66.20 >55% EF BiP: 67.30 >55% Mitral Valve MV VTI: 0.22 MV Pk Ramses: 0.99 MV Mn Ramses: 0.52 MV Pk Grad: 4.00 MV Mn Grad: 1.00 MV Pk E: 0.51 MV PK A: 0.53 MV Decel Time: 242.00 E/A: 1.00 E'Lateral: 10.40 E'Medial: 6.31 E/E' Med: 8.10 E/E' Lat: 4.90 PHT: 71.00 MVA PHT: 3.10 MVA Continuity: 4.37 Decel Hancock: 2.11 Aortic Valve AoV Pk Ramses: 1.45 AoV Mn Ramses: 1.02 AoV VTI: 0.24 AoV Pk Grad: 8.00 Aov Mn Grad: 5.00 ALBA Cont.VTI: 4.11 LVOT LVOT Pk Ramses: 1.37 LVOT Mn Ramses: 0.97 LVOT VTI: 0.23 LVOT Pk Grad: 8.00 LVOT Mn Grad: 4.00 LVOT Diam: 2.30 LVOT Area: 4.15 Diastolic Function MV Pk E: 0.51 MV Pk A: 0.53 E/A: 1.00 E'Medial: 6.31 E/E' Med: 8.10 E' Laterial: 10.40 E/E' Lat: 4.90 Right Ventricle TAPSE (mm): 21.40 TVS' Ramses: 14.10 Tricuspid Valve RA Press: 3.00 Great Vessels Aorta Sinus of Valsalva: 3.92 2.0-3.5 cm Ao Asc: 3.60 2.1-3.4 cm Updated in Other Vendor System with Status of Final Zeeshan Clarke MD electronically signed on 10/11/2023 9:00:32 AM with status of Final
== END ==
LOC: HO.CARD 14:06
PROVIDERS: PCP Family Medicine; Visit Provider Internal Medicine Cardiovascular Disease
DX: R07.9 Chest pain, unspecified (principal)
CPT/HCPCS: 93306; Q9957

== ENCOUNTER → 2023-10-09 14:09 | Outpatient (BNV) | payer OTHER, SELFPAY | PROVIDERS: PCP Family Medicine; Visit Provider Internal Medicine | DX: R07.9 Chest pain, unspecified (principal) | CPT/HCPCS: 93306 ==

== ENCOUNTER 2023-11-08 09:47 | Outpatient (AMB) | payer OTHER, SELFPAY ==
--- NOTE | 2023-11-08 10:21 | A.OFFPC_ITS ---
Vital Signs 11/08/23 10:22 Height 5 ft 10 in Weight 273 lb 2 oz BMI 39.2 BP 136/80 Blood Pressure Location Rt brachial Position Sitting Respiration 15 Pulse 88 Pulse Source Pulse Oximeter Temp 97.9 F Temp Source Temporal Artery Scan Pulse Oximetry (%) 98 Oxygen Delivery Method Room Air Intake Visit Reasons: Follow up diabetes Intake Note: Patient is here to follow up on diabetes today. Patient is requesting alternative for Trulicity, his insurance won't pay for it. Allergies No Known Allergies Allergy (Verified 11/08/23 10:30) Tobacco use date assessed: 05/07/23 Dental Screening Dental Screen Date: 11/08/23 Did you have a dental visit in the last 12 months?: No Did you have a dental problem in the last 6 months where you did not have access to dental care?: No Was dental information given to patient?: No HPI Follow up diabetes HPI Details 58 y/o male presents to f/u diabetes, hy perlipidemia, elevated liver enzymes. Also f/u exertional chest pain. Last A1c 05/07/23 7.4%. A1c today 11/08/23 over 11%. He notes he has been having trouble with getting his Trulicity. He is on metformin 500mg b.i.d. No recent labs to review for his lipids, enzymes. [facility] Medical History Sleep apnea Elevated cholesterol HTN (hypertension) Surgical History H/O colonoscopy History of orchiectomy History of hernia surgery Family History Paternal Grandmother FH: mental illness Social History Housing: House Patient Tobacco Use Status: Never used Tobacco e-Cigarette/Vaping Use: Never Used Second Hand Smoke Exposure: No service: No Current occupational status: employed Current occupation: Environmental consulting Current occupational exposures/hazards: No Cognitive needs: No Hearing needs: No Vision needs: No Questionnaire Thrive Questionnaire Date Thrive assessed: 05/07/23 ANNIA-7 AMB Questionnaire ANNIA-7 Date ANNIA - 7 assessed: 05/07/23 Source: Developed by Drs. Henry Man, Lakisha Kendall, Aebl Silva and colleagues, with an educational marlyn from [employer]. Review of Systems Const Denies chills, Denies fatigue, Denies fever(s), Denies headache(s) and Denies weakness ENT Denies dizziness and Denies headache(s) Card Denies dyspnea Resp Denies cough, Denies dyspnea, Denies wheezing and Denies other (shortness of breath) Musc Denies numbness and Denies tingling Neuro Denies dizziness, Denies headache(s), Denies numbness, Denies tingling and Denies weakness Psych Denies anxiety and Denies depression Endo Denies fatigue Aller/Immun Denies wheezing Physical exam (Primary Care) Vital Signs: Last Vital Signs Temp 97.9 F 11/08/23 10:22 Pulse 88 11/08/23 10:22 Resp 15 11/08/23 10:22 BP 136/80 11/08/23 10:22 Pulse Ox 98 11/08/23 10:22 Oxygen Delivery Method Room Air 11/08/23 10:22 BMI result Body Mass Index 39.2 Tobacco/Smoking Status: Tobacco use Status Tobacco use date assessed 05/07/23 11/08/23 10:29 Patient Tobacco Use Status Never used Tobacco 11/08/23 10:29 Tobacco use type 05/10/22 09:43 e-Cigarette/Vaping Use Never Used 11/08/23 10:29 Thrive Assessment: Date of Thrive Assessment Date Thrive assessed 05/07/23 11/08/23 10:29 Const General: well developed; No acute distress Nutritional Appearance: well nourished Orientation/consciousness: patient oriented x3 HENMT Head: Yes normocephalic and Yes atraumatic Eyes General: appearance normal, both eyes and all related structures Pupils: Equal, round and reactive pupils present EOM: EOMs intact bilaterally Resp Effort & Inspection: normal respiratory effort Neuro General: patient oriented x3 and gait normal Cranial nerves: Yes Equal, round and reactive pupils present Psych Affect: normal affect Results AMB Hemoglobin A1c AMB Hemoglobin A1c 12.8 % Last Edit by Ivy Finley CMA on 11/08/23 10:47 Assessment and Plan Assessment & Plan (1) Diabetes: Code(s): E11.9 - Type 2 diabetes mellitus without complications Plan: A1c?12.8%. Uncontrolled?diabetes.??Goal?is?less?than?7.0% Patient?has?not?been?able?to?get?Trulicity?and?it?is?unclear?if?he?is?taking?the ?metformin. He?has?not?been?working?on?a?diabetic?diet?either Refilled?his?medications?and?added?Januvia.??Will?ask?med ical?server service assistant?to?start?prior?authorization?for?Trulicity\ Referred?to?endocrinology (2) Exertional chest pain: Code(s): R07.9 - Chest pain, unspecified Plan: High?coronary?calcium?score Follow-up?with??Aly (3) Hyperlipidemia: Code(s): E78.5 - Hyperlipidemia, unspecified Plan: Lipids?are?too?high?for?patient?with?diabetes?and?coronary?artery?disease He?is?on?high?dose?atorvastatin He?has?an?upcoming?appointment?with?his?information delivery analyst?and?I?advised?him?to?discus s?additional?medication (4) RUMA (obstructive sleep apnea): Code(s): G47.33 - Obstructive sleep apnea (adult) (pediatric) Plan: Will?refer?him?to?Sleep?Medicine Orders: Orders AMB Hemoglobin A1c Today Z13.9 - Encounter for screening, unspecified Referrals Endocrinology Referral E11.9 - Type 2 diabetes mellitus without complications Sleep Medicine Referral G47.33 - Obstructive sleep apnea (adult) (pediatric) Nurse Navigator Referral E11.9 - Type 2 diabetes mellitus without complications Medications: New blood sugar diagnostic ([employer] Ultra Test strips) To Test Blood Sugar 4 times a day, As directed, 90 days 400 ea 3RF E11.9 - Type 2 diabetes mellitus without complications sitagliptin phosphate (Januvia) 50 mg PO DAILY 90 days 90 tabs 2RF lancets (OneTouch Delica Plus Lancet) To Test Blood Sugar 4 times a day, As directed. 90 days 400 ea 3RF E11.9 - Type 2 diabetes mellitus without complications blood-glucose meter (OneTouch Ultra2 Meter) To test Blood sugar As directed, 999 days 1 ea 0RF E11.9 - Type 2 diabetes mellitus without complications Refilled dulaglutide (Trulicity) 0.75 mg (0.5 mL) subcut QWEEK 28 days 2 mL 2RF metformin 500 mg PO BID 180 tabs 1RF Coding Level of Care Code Est Pt Level 4 (30508) Diagnoses Diabetes E11.9 Exertional chest pain R07.9 Hyperlipidemia E78.5 RUMA (obstructive sleep apnea) G47.33
[2023-11-08 10:22] VITALS: BP 136/80; PULSE 88; RESP 15; TEMP 36.6; O2SAT 98; BMI 39.2
== END 2023-11-08 10:54 | disposition home or self-care (01) ==
PROVIDERS: PCP Family Medicine; Visit Provider Family Medicine
DX: E11.69 Type 2 diabetes mellitus with other specified complication (principal); R07.9 Chest pain, unspecified; E78.5 Hyperlipidemia, unspecified; G47.33 Obstructive sleep apnea (adult) (pediatric)
CPT/HCPCS: 83036; 99214

== ENCOUNTER 2023-12-02 12:20 | Outpatient (REF) | payer OTHER, SELFPAY ==
[2023-12-02 15:14] LABS: Alanine Aminotransferase 44 U/L (0-40); Alkaline Phosphatase 92 U/L (39-117); Anion Gap 11 (12-20); Aspartate Amino Transferase 28 U/L (5-37); Bilirubin Total 0.7 mg/dL (0.0-1.0); Blood Urea Nitrogen 11 mg/dL (9-16); Calcium 9.9 mg/dL (8.4-10.2); Carbon Dioxide 31 mmol/L (22-29); Chloride 99 mmol/L (96-108); Cholesterol 177 mg/dL (<200); Estimated Glomerular Filt Rate > 60; Glucose Fasting 254 mg/dL (60-99); HDL Cholesterol 53 mg/dL (>40); LDL Cholesterol Calculated 96 mg/dL (<100); Potassium 3.8 mmol/L (3.3-5.1); Sodium 137 mmol/L (135-145); Total Protein 7.1 g/dL (6.5-8.0); Triglycerides 141 mg/dL (<150)
== END 2023-12-02 12:21 | disposition home or self-care (01) ==
LOC: HO.WFDLDS 12:20
PROVIDERS: Visit Provider Family Medicine
DX: Z00.00 Encounter for general adult medical examination without abnormal findings (principal); E78.5 Hyperlipidemia, unspecified; R74.01 Elevation of levels of liver transaminase levels
CPT/HCPCS: 36415; 80053; 80061

== ENCOUNTER 2023-12-06 14:34 | Outpatient (AMB) | payer OTHER, SELFPAY ==
--- NOTE | 2023-12-06 14:35 | A.OFFVIS_ITS ---
Vital Signs 12/06/23 14:36 Height 5 ft 10 in Weight 268 lb 8 oz BMI 38.5 BP 122/70 Blood Pressure Location Rt brachial Pulse 83 Pulse Source Pulse Oximeter Pulse Oximetry (%) 96 Oxygen Delivery Method Room Air Intake Visit Reasons: [id number] Intake Note: Patient presents for RUMA. diagnose with apnea a couple years ago. Patient has cpap uses it everyday Allergies No Known Allergies Allergy (Verified 12/06/23 16:53) Medication List - Last Reconciled 12/06/23 by ALEXIS Liao atorvastatin 80 mg PO DAILY 90 days blood sugar diagnostic ([employer] Ultra Test strips) To Test Blood Sugar 4 times a day, As directed, 90 days blood-glucose meter ([employer] Ultra2 Meter) To test Blood sugar As directed, 999 days bupropion HCl XL 150 mg PO QAM clonazepam 0.5 mg PO TID PRN clonidine HCl 0.1 mg PO BID dulaglutide (Trulicity) 0.75 mg (0.5 mL) subcut QWEEK 28 days duloxetine 60 mg PO DAILY empagliflozin (Jardiance) 10 mg PO QAM 90 days famotidine (Pepcid) 40 mg PO BEDTIME irbesartan-hydrochlorothiazide 300-12.5 mg 1 tab PO DAILY lancets ([employer] Delica Plus Lancet) To Test Blood Sugar 4 times a day, As directed. 90 days metformin 500 mg PO BID metronidazole 500 mg PO TID omeprazole 20 mg PO DAILY 30 days risperidone 1 mg PO BEDTIME HPI Comments Details: 58-yr-old male presents for new in-person patient visit for sleep consultation. He comes today to reestablish care to sleep medicine , as his current machine has been giving him an error code- that machine has reached the end of its life. Patient reports he was diagnosed with severe sleep apnea in 2008. States he underwent in-lab PSG at that time to assess snoring, apneas, fatigu e/sluggishness, and morning headaches. Since starting CPAP 16 cmH2O, he states he sleeps like a baby . He has some mild restless leg s/s when watching TV later in the evening, but usually resolves when he gets into bed. May need some daytime naps, but overall feels better. He states he cannot sleep without his CPAP machine. If he falls asleep during the day without his CPAP, he wakes up snoring and gasping. [facility] Medical History Sleep apnea Elevated cholesterol HTN (hypertension) Surgical History H/O colonoscopy History of orchiectomy History of hernia surgery Family History Paternal Grandmother FH: mental illness Social History Housing: House Patient Tobacco Use Status: Never used Tobacco e-Cigarette/Vaping Use: Never Used Second Hand Smoke Exposure: No service: No Current occupational status: employed Current occupation: Environmental consulting Current occupational exposures/hazards: No Cognitive needs: No Hearing needs: No Vision needs: No Physical Exam Vital Signs: Last Vital Signs Pulse 83 12/06/23 14:36 BP 122/70 12/06/23 14:36 Pulse Ox 96 12/06/23 14:36 Oxygen Delivery Method Room Air 12/06/23 14:36 BMI result Body Mass Index 38.5 Const General: no acute distress Orientation/consciousness: patient oriented x3 Resp Effort & Inspection: normal respiratory effort and able to speak in complete sentences Auscultation: clear to auscultation bilaterally Cardio Rate: regular rate Rhythm: regular rhythm Neuro General: patient oriented x3 and CN's II-XI intact bilaterally Psych Appearance: grossly normal Mental Status: mental status grossly normal Speech and movement: Normal speech and movement present Attitude: cooperative Assessment & Plan Assessment & Plan (1) RUMA (obstructive sleep apnea): Code(s): G47.33 - Obstructive sleep apnea (adult) (pediatric) Category: Medical Plan Pt's current CPAP machine has reached the end of it's life. We will request CPAP machine replacement, as pt continues to experience good clinical effect from use. Continue 16cm H2O nightly > 4 hrs. Clean and change CPAP machine supplies routinely. f/u in 6 months or sooner prn. Coding Level of Care Code New Pt Level 3 (40201) Diagnoses RUMA (obstructive sleep apnea) G47.33
[2023-12-06 14:36] VITALS: BP 122/70; PULSE 83; O2SAT 96; BMI 38.5
== END 2023-12-06 15:18 | disposition home or self-care (01) ==
PROVIDERS: PCP Family Medicine; Visit Provider Nurse Practitioner Family
DX: G47.33 Obstructive sleep apnea (adult) (pediatric) (principal)
CPT/HCPCS: 99203

== ENCOUNTER → 2023-12-06 14:34 | Outpatient (BNVA) | payer OTHER, SELFPAY | PROVIDERS: PCP Family Medicine; Visit Provider Nurse Practitioner Family ==

== ENCOUNTER → 2023-12-06 16:55 | Outpatient (AMB) | payer OTHER, SELFPAY ==
--- NOTE | 2023-12-06 16:51 | A.OFFPC_ITS ---
Intake Visit Reasons: f/u labs via telemedicine Intake Note: Patient is scheduled for lab review today. Allergies No Known Allergies Allergy (Verified 12/06/23 16:53) Tobacco use date assessed: 12/06/23 Dental Screening Dental Screen Date: 11/08/23 HPI f/u labs via telemedicine HPI Details 58 y/o male presents to review lipids wh ich had been high. Labs were drawn 12/02/23. Reviewed labs with pt. Elevated fasting glucose of 254. Last A1c 11/08/23 12.8%. Triglycerides 141. TC 177. LDL 96. HDL 53. He is on artovastatin 80mg daily. Elevated ALT of 44. HPI Comments History of Present Illness Details Documentation assistance for Blaine Rausch MD, was provided by Song Carter, Director Of Quality Improvement on 12/06/2023 at 5:05 PM EST. I, Dr. Rausch, have read, observed, and verified documentation. [facility] Medical History (Reviewed 11/08/23 @ 10:30 by Ivy Finley [facility]) Sleep apnea Elevated cholesterol HTN (hypertension) Surgical History H/O colonoscopy History of orchiectomy History of hernia surgery Family History Paternal Grandmother FH: mental illness Social History Housing: House Patient Tobacco Use Status: Never used Tobacco e-Cigarette/Vaping Use: Never Used Second Hand Smoke Exposure: No service: No Current occupational status: employed Current occupation: Environmental consulting Current occupational exposures/hazards: No Cognitive needs: No Hearing needs: No Vision needs: No Questionnaire Thrive Questionnaire Date Thrive assessed: 05/07/23 ANNIA-7 AMB Questionnaire ANNIA-7 Date ANNIA - 7 assessed: 05/07/23 Source: Developed by Drs. Henry Man, Lakisha Kendall, Abel Silva and colleagues, with an educational marlyn from [employer]. Review of Systems Const Denies chills, Denies fatigue, Denies fever(s), Denies headache(s) and Denies weakness ENT Denies dizziness and Denies headache(s) Card Denies dyspnea Resp Denies cough, Denies dyspnea, Denies wheezing and Denies other (shortness of breath) Musc Denies numbness and Denies tingling Neuro Denies dizziness, Denies headache(s), Denies numbness, Denies tingling and Denies weakness Psych Denies anxiety and Denies depression Endo Denies fatigue Aller/Immun Denies wheezing Physical exam (Primary Care) Tobacco/Smoking Status: Tobacco use Status Tobacco use date assessed 12/06/23 12/06/23 16:54 Patient Tobacco Use Status Never used Tobacco 12/06/23 16:54 Tobacco use type 05/10/22 09:43 e-Cigarette/Vaping Use Never Used 12/06/23 16:54 Thrive Assessment: Date of Thrive Assessment Date Thrive assessed 05/07/23 12/06/23 16:54 Telehealth Telehealth Telehealth Platform: Telephone Location of provider rendering services: practice address Location of patient: address on file Patient Identification confirmed using: Name, : Yes Telehealth method: voice only Patient verbally consented to treatment: Yes Patient verbally consented to billing insurance company: Yes Patient informed of any privacy concerns related to visit: Yes Minutes spent on Phone/Video with Pt.: 5 Assessment and Plan Assessment & Plan (1) Hyperlipidemia: Code(s): E78.5 - Hyperlipidemia, unspecified Plan: Cholesterol?levels?all?within?normal?range?now?and?LDL?is?at?goal?of?less?than?1 00 Continue?atorvastatin (2) Elevated ALT measurement: Code(s): R74.01 - Elevation of levels of liver transaminase levels Plan: Improving Encouraged?weight?loss, good?hydration?and?diabetes?control (3) Diabetes: Code(s): E11.9 - Type 2 diabetes mellitus without complications Plan: Blood?sugars?have?been?high?and?A1c?was?12.8%?at?last?check Had?sent?a?script?for?Januvia?but?this?was?declined?and?I?sent?a ?new?script?for?Jardiance?which?patient?picked?up?today?but?has?not?begun He?has?gotten?his?Trulicity?and?is?other?medications.??He?has?had?diabetic?teach ing.??Has?continuous?glucose?monitoring Continue?current?regimen Will?follow-up?in?January Coding Level of Care Code Tele Est Pt Level 2 (72733) Diagnoses Hyperlipidemia E78.5 Elevated ALT measurement R74.01 Diabetes E11.9
== END ==
PROVIDERS: PCP Family Medicine; Visit Provider Family Medicine
DX: E78.5 Hyperlipidemia, unspecified (principal); R74.01 Elevation of levels of liver transaminase levels; E11.69 Type 2 diabetes mellitus with other specified complication
CPT/HCPCS: 99441

== ENCOUNTER 2023-12-30 14:27 | Outpatient (AMB) | payer OTHER, SELFPAY ==
[2023-12-30 14:28] VITALS: BP 120/62; PULSE 85; BMI 37.6
--- NOTE | 2023-12-30 14:28 | MHC.OFFVIS ---
Vital Signs 12/30/23 14:28 Height 5 ft 10 in Weight 262 lb 5.601 oz BMI 37.6 BP 120/62 Blood Pressure Location Lt brachial Position Sitting Pulse 85 Pulse Source Pulse Oximeter Intake Visit Reasons: 4 Week follow up Intake Note: PT IS HERE FOR 4 WEEK F/U PT IS DOING GOOD Allergies No Known Allergies Allergy (Verified 12/06/23 16:53) Medication List - Last Reconciled 12/30/23 by Michael Martinez MD atorvastatin 80 mg PO DAILY 90 days blood sugar diagnostic ([employer] Ultra Test strips) To Test Blood Sugar 4 times a day, As directed, 90 days blood-glucose meter ([employer] Ultra2 Meter) To test Blood sugar As directed, 999 days bupropion HCl XL 150 mg PO QAM clonazepam 0.5 mg PO TID PRN clonidine HCl 0.1 mg PO BID dulaglutide (Trulicity) 0.75 mg (0.5 mL) subcut QWEEK 28 days duloxetine 60 mg PO DAILY irbesartan-hydrochlorothiazide 300-12.5 mg 1 tab PO DAILY lancets ([employer] Delica Plus Lancet) To Test Blood Sugar 4 times a day, As directed. 90 days metformin 500 mg PO BID HPI Comments Details: Isaias comes for follow-up. He continues to have exertional chest discomfort when he says he walks with an energetic pace for about half a mi. Symptoms then resolve within 5-10 minutes of resting. He said when he takes a longer leisurely walk he gets short of breath. This was demonstrated on the treadmill. He has not been monitoring his blood pressure. His LDL is much improved with high-intensity statin therapy would not optimized. Coronary calcium score shows moderate calcium score in all three-vessel predominantly LAD and RCA. He denies any progressive chest pain syndrome. Takes all his medications. [facility] Medical History Sleep apnea Elevated cholesterol HTN (hypertension) Surgical History H/O colonoscopy History of orchiectomy History of hernia surgery Family History Paternal Grandmother FH: mental illness Social History Housing: House Patient Tobacco Use Status: Never used Tobacco e-Cigarette/Vaping Use: Never Used Second Hand Smoke Exposure: No service: No Current occupational status: employed Current occupation: Environmental consulting Current occupational exposures/hazards: No Cognitive needs: No Hearing needs: No Vision needs: No Review of Systems Const Denies weakness ENT Denies dizziness Card Denies chest pain, Denies chest pain with activity, Denies syncope, Denies rapid heart rate, Denies pedal edema, Denies edema, Denies leg edema, Denies lightheadedness, Denies palpitations, Denies dyspnea, Denies dyspnea on exertion and Denies orthopnea Resp Denies cough, Denies dyspnea and Denies dyspnea on exertion GI Denies hematochezia and Denies change in stool character Musc Denies abnormal gait, Denies muscle cramps, Denies muscle weakness, Denies numbness, Denies radiating pain into limb and Denies tingling Neuro Denies Abnormal speech present, Denies abnormal gait, Denies dizziness, Denies syncope, Denies numbness, Denies tingling and Denies weakness Endo Denies palpitations Physical Exam Vital Signs: Last Vital Signs Pulse 85 12/30/23 14:28 BP 120/62 12/30/23 14:28 BMI result Body Mass Index 37.6 Const General: cooperative, comfortable, no acute distress, alert, awake and Physically active Nutritional Appearance: obese Orientation/consciousness: patient oriented x3 Limitations: no limitations HEENT Head: Yes normocephalic and Yes atraumatic Neck Neck: Yes trachea midline, Yes supple and Yes no JVD Resp Effort & Inspection: normal respiratory effort Auscultation: clear to auscultation bilaterally Cardio Jugular venous distension: no JVD Palpation: normal PMI Rate: regular rate Rhythm: regular rhythm Heart sounds: S1 normal heart sound present, S2 normal heart sound present, no click, no gallops, no murmurs and no rubs GI Auscultation: normal bowel sounds Skin General skin exam: no rashes or lesions noted Neuro General: patient oriented x3 and no focal motor deficits Speech: No Abnormal speech present Extrem General: Yes no clubbing, cyanosis or edema Psych Appearance: grossly normal Assessment & Plan Assessment & Plan (1) Exertional chest pain: Code(s): R07.9 - Chest pain, unspecified Category: Medical Plan: Exertional chest pain in this middle-aged man with strong history including hypertension, marked hyperlipidemia as strong family history of premature atherosclerosis with evidence of coronary atherosclerosis by coronary calcium score although not prognostically significant. Presence of obstructive coronary artery disease still likely. His stress test was abnormal with exertional shortness of breath but with hypertensive blood pressure response. He is exertional chest pain could be related to hypertensive blood pressure response although significant obstructive CAD needs to be ruled out. Will suggest a coronary CTA as a noninvasive evaluation for obstructive CAD. Further treatment based on the findings of coronary CTA. Advise low-dose aspirin therapy. Will add ezetimibe 10 mg to his regimen to target goal LDL less than 70 mg/dL. He agrees to that. Follow up in the clinic in 3 months time. Orders: Orders CT Cardiac Coronary Angio 1 Week R07.9 - Chest pain, unspecified Coding Level of Care Code Est Pt Level 4 (31216) Diagnoses Exertional chest pain R07.9
== END 2023-12-30 14:57 | disposition home or self-care (01) ==
PROVIDERS: PCP Family Medicine; Visit Provider Internal Medicine Cardiovascular Disease
DX: R07.9 Chest pain, unspecified (principal)
CPT/HCPCS: 99214

== ENCOUNTER → 2023-12-30 14:27 | Outpatient (BNVA) | payer OTHER, SELFPAY | PROVIDERS: PCP Family Medicine; Visit Provider Internal Medicine Cardiovascular Disease ==

== ENCOUNTER 2024-03-02 13:01 | Outpatient (REF) | payer OTHER, SELFPAY ==
[2024-03-02 15:17] LABS: Anion Gap 14 (12-20); Blood Urea Nitrogen 10 mg/dL (9-16); Carbon Dioxide 26 mmol/L (22-29); Chloride 102 mmol/L (96-108); Estimated Glomerular Filt Rate > 60; Glucose Random 173 mg/dL (60-115); Potassium 4.1 mmol/L (3.3-5.1); Sodium 138 mmol/L (135-145)
== END 2024-03-02 13:02 | disposition home or self-care (01) ==
LOC: HO.WFDLDS 13:01
PROVIDERS: Visit Provider Internal Medicine Cardiovascular Disease
DX: R07.9 Chest pain, unspecified (principal)
CPT/HCPCS: 36415; 80048

== ENCOUNTER 2024-03-27 11:09 | Outpatient (AMB) | payer OTHER, SELFPAY ==
--- NOTE | 2024-03-27 11:55 | MHC.PC.OV ---
Vital Signs 03/27/24 12:03 Height 5 ft 10 in Weight 269 lb 2 oz BMI 38.6 BP 130/66 Blood Pressure Location Rt brachial Position Sitting Respiration 16 Pulse 92 Pulse Source Pulse Oximeter Temp 99.0 F Temp Source Oral Pulse Oximetry (%) 96 Oxygen Delivery Method Room Air Intake Visit Reasons: follow up diabetes Intake Note: f/u dm Allergies No Known Allergies Allergy (Verified 03/27/24 12:00) Tobacco use date assessed: 12/06/23 Dental Screening Dental Screen Date: 11/08/23 HPI follow up diabetes HPI Details 59 y/o male presents to f/u diabetes. A1c today 03/27/24 7.5%. Much improved from 12.8% on 11/08/23. States he has been tolerating trulicity. Also on metformin 500mg. Had seen Dr. [facility] in December for exertional chest pain. Stress test was abnormal with exertional SOB but with hypertensive blood pressure response. They had suggested coronary CTA . Had advised low dose aspirin therapy. They added ezetimibe 10mg to his regumen. Impression shows few areas of atherosclerotic plaque, which produce minimal stenosis of less than 25% in the coronary arteries. HPI Comments History of Present Illness Details Documentation assistance for Blaine Rausch MD, was provided by Song Carter, Dock Coordinator on 03/27/2024 at 12:29 PM EST. I, Dr. Rausch, have read, observed, and verified documentation. [facility] Medical History Sleep apnea Elevated cholesterol HTN (hypertension) Surgical History H/O colonoscopy History of orchiectomy History of hernia surgery Family History Paternal Grandmother FH: mental illness Social History Housing: House Patient Tobacco Use Status: Never used Tobacco e-Cigarette/Vaping Use: Never Used Second Hand Smoke Exposure: No service: No Current occupational status: employed Current occupation: Environmental consulting Current occupational exposures/hazards: No Cognitive needs: No Hearing needs: No Vision needs: No Questionnaire Thrive Questionnaire Date Thrive assessed: 05/07/23 ANNIA-7 AMB Questionnaire ANNIA-7 Date ANNIA - 7 assessed: 05/07/23 Source: Developed by Drs. Henry Man, Lakisha Kendall, Abel Silva and colleagues, with an educational marlyn from [employer]. Review of Systems Const Denies chills, Denies fatigue, Denies fever(s), Denies headache(s) and Denies weakness ENT Denies dizziness and Denies headache(s) Card Denies dyspnea Resp Denies cough, Denies dyspnea, Denies wheezing and Denies other (shortness of breath) Musc Denies numbness and Denies tingling Neuro Denies dizziness, Denies headache(s), Denies numbness, Denies tingling and Denies weakness Psych Denies anxiety and Denies depression Endo Denies fatigue Aller/Immun Denies wheezing Physical exam (Primary Care) Vital Signs: Last Vital Signs Temp 99.0 F 03/27/24 12:03 Pulse 92 03/27/24 12:03 Resp 16 03/27/24 12:03 BP 130/66 03/27/24 12:03 Pulse Ox 96 03/27/24 12:03 Oxygen Delivery Method Room Air 03/27/24 12:03 BMI result Body Mass Index 38.6 Tobacco/Smoking Status: Tobacco use Status Tobacco use date assessed 12/06/23 03/27/24 11:56 Patient Tobacco Use Status Never used Tobacco 03/27/24 11:56 Tobacco use type 03/18/24 08:55 e-Cigarette/Vaping Use Never Used 03/27/24 11:56 Thrive Assessment: Date of Thrive Assessment Date Thrive assessed 05/07/23 03/27/24 11:56 Const General: well developed; No acute distress Nutritional Appearance: well nourished Orientation/consciousness: patient oriented x3 HENMT Head: Yes normocephalic and Yes atraumatic Eyes General: appearance normal, both eyes and all related structures Pupils: Equal, round and reactive pupils present EOM: EOMs intact bilaterally Resp Effort & Inspection: normal respiratory effort Neuro General: patient oriented x3 and gait normal Cranial nerves: Yes Equal, round and reactive pupils present Psych Affect: normal affect Results AMB Hemoglobin A1c AMB Hemoglobin A1c 7.5 % Last Edit by JAYCE Lambert on 10/04/24 12:06 Results Reviewed Results Reviewed: Laboratory Last Values Hgb A1c (Clinic) 7.5 % (4.0-6.0) H 03/27/24 12:04 Coding Level of Care Code Est Pt Level 3 (54857) Diagnoses Diabetes E11.9 Exertional chest pain R07.9 Assessment & Plan Assessment & Plan (1) Diabetes: Code(s): E11.9 - Type 2 diabetes mellitus without complications Category: Medical Plan: A1c?had?been?12.4% as?we?were?trying?to?prescribe?medication?he?was?unable?to?obtain. More?recently?has?been?on?Trulicity?and?metformin?and?his?A1c?has?come?down?to?7.5%.??Much?improved.??Still?a?little?above?goal?of?less?than?7.0% Continue?metformin?as?prescribed?and?increase?Trulicity?to?1.5?mg?weekly Encouraged?diabetic?diet?and?exercise as?tolerated (2) Exertional chest pain: Code(s): R07.9 - Chest pain, unspecified Category: Medical Plan: Patient?is?getting?some?mild?exertional?chest?pain?and?has?workup with?Cardiology.??Recent?CT?angio?showed?25%?stenosis?of?RCA. Blood?pressure?is?fairly?well?controlled?today His?LDL?cholesterol?is?above?goal?of?less?than?70; he?is?taking?atorvastatin?and?his?animal care service worker?had?prescribed?Zetia?but?patient?was?unfamiliar?with?the?medication?today. I?advised?him?to?check?to?see?if?he?has?been?taking?this?or?pick?it?up?as?he?was?provided?additional?refills. Follow-up?with?Cardiology?as?recommended Orders: Orders AMB Hemoglobin A1c Today R73.01 - Impaired fasting glucose Medications: Changed From dulaglutide (Trulicity) 0.75 mg (0.5 mL) subcut QWEEK 28 days 2 mL 2RF To dulaglutide 1.5 mg (0.5 mL) subcut QWEEK 28 days 2 mL 2RF
[2024-03-27 12:03] VITALS: BP 130/66; PULSE 92; RESP 16; TEMP 37.2; O2SAT 96; BMI 38.6
== END 2024-03-27 12:47 | disposition home or self-care (01) ==
PROVIDERS: PCP Family Medicine; Visit Provider Family Medicine
DX: E11.9 Type 2 diabetes mellitus without complications (principal); R07.9 Chest pain, unspecified; R73.01 Impaired fasting glucose

== ENCOUNTER → 2024-03-27 11:09 | Outpatient (BNVA) | payer OTHER, SELFPAY | PROVIDERS: PCP Family Medicine; Visit Provider Family Medicine | DX: E11.9 Type 2 diabetes mellitus without complications (principal); R07.9 Chest pain, unspecified; Z79.84 Long term (current) use of oral hypoglycemic drugs | CPT/HCPCS: 83036 ==

== ENCOUNTER 2024-07-03 10:37 | Outpatient (AMB) | payer OTHER, SELFPAY ==
[2024-07-03 10:45] VITALS: BMI 38.4
--- NOTE | 2024-07-03 10:45 | MHC.OFFVIS ---
Vital Signs 07/03/24 10:45 Height 5 ft 10 in Weight 268 lb BMI 38.4 Intake Visit Reasons: 6 month f/u Intake Note: Patient presents for 6 months. Allergies No Known Allergies Allergy (Verified 07/03/24 10:47) HPI Comments Details: 59-year-old male presents for follow-up visit of obstructive sleep apnea. Since the last visit, patient reports he has received a new CPAP machine. However, he has not started to use it as he is still using his old CPAP machine. He is receiving CPAP supplies regularly. He tends to use tap water rather than distilled water in his machine. Overall, he can not sleep without his CPAP machine, and still finds it to be very beneficial. He states, he will start to use the new CPAP machine in the next few weeks or month. Initial HPI from 12/06/2023: 58-yr-old male presents for new in-person patient visit for sleep consultation. He comes today to reestablish care to sleep medicine , as his current machine has been giving him an error code- that machine has reached the end of its life. Patient reports he was diagnosed with severe sleep apnea in 2008. States he underwent in-lab PSG at that time to assess snoring, apneas, fatigue/sluggishness, and morning headaches. Since starting CPAP 16 cmH2O, he states he sleeps like a baby . He has some mild restless leg s/s when watching TV later in the evening, but usually resolves when he gets into bed. May need some daytime naps, but overall feels better. He states he cannot sleep without his CPAP machine. If he falls asleep during the day without his CPAP, he wakes up snoring and gasping. [facility] Medical History Sleep apnea Elevated cholesterol HTN (hypertension) Surgical History H/O colonoscopy History of orchiectomy History of hernia surgery Family History Paternal Grandmother FH: mental illness Social History Housing: House Patient Tobacco Use Status: Never used Tobacco e-Cigarette/Vaping Use: Never Used Second Hand Smoke Exposure: No service: No Current occupational status: employed Current occupation: Environmental consulting Current occupational exposures/hazards: No Cognitive needs: No Hearing needs: No Vision needs: No Physical Exam Vital Signs: BMI result Body Mass Index 38.4 Const General: no acute distress Orientation/consciousness: patient oriented x3 Resp Effort & Inspection: normal respiratory effort and able to speak in complete sentences Auscultation: clear to auscultation bilaterally Cardio Rate: regular rate Rhythm: regular rhythm Neuro General: patient oriented x3 and CN's II-XI intact bilaterally Psych Appearance: grossly normal Mental Status: mental status grossly normal Speech and movement: Normal speech and movement present Attitude: cooperative Assessment & Plan Assessment & Plan (1) RUMA (obstructive sleep apnea): Code(s): G47.33 - Obstructive sleep apnea (adult) (pediatric) Category: Medical Plan Continue 16cm H2O nightly > 4 hrs, , as pt continues to experience good clinical effect from use. Clean and change CPAP machine supplies routinely. Encouraged patient to use distilled water in his CPAP water tank reservoir. Patient is happy with his current CPAP therapy, however he may be interested in reading?Wilder See' new book ?The Sleep Apnea Hypothesis?. To gain a further understanding sleep and sleep apneas effect, once overall health and quality of life. f/u in 12 months or sooner prn. Coding Level of Care Code Est Pt Level 3 (57123) Diagnoses RUMA (obstructive sleep apnea) G47.33
== END 2024-07-03 11:15 | disposition home or self-care (01) ==
PROVIDERS: PCP Family Medicine; Visit Provider Nurse Practitioner Family
DX: G47.33 Obstructive sleep apnea (adult) (pediatric) (principal)
CPT/HCPCS: 99213

== ENCOUNTER 2024-10-20 08:48 | Outpatient (AMB) | payer OTHER, SELFPAY ==
[2024-10-20 09:06] VITALS: BP 140/62; PULSE 82; RESP 16; TEMP 36.5; O2SAT 94; BMI 38.5
--- NOTE | 2024-10-20 09:06 | A.OFFPC_ITS ---
Vital Signs 10/20/24 09:06 Height 5 ft 10 in Weight 268 lb 6 oz BMI 38.5 BP 140/62 H Blood Pressure Location Lt brachial Position Sitting Respiration 16 Pulse 82 Pulse Source Pulse Oximeter Temp 97.7 F Temp Source Oral Pulse Oximetry (%) 94 Oxygen Delivery Method Room Air Intake Visit Reasons: f/u diabetes, chronic conditions, reschedule Allergies No Known Allergies Allergy (Verified 07/03/24 10:47) Medication List - Last Reconciled 10/20/24 by Blaine Rausch MD atorvastatin 80 mg PO DAILY 90 days blood sugar diagnostic (Get 2 It Salesuch Ultra Test strips) To Test Blood Sugar 4 times a day, As directed, 90 days blood-glucose meter (Get 2 It Salesuch Ultra2 Meter) To test Blood sugar As directed, 999 days bupropion HCl XL 150 mg PO QAM clonazepam 0.5 mg PO TID PRN clonidine HCl 0.1 mg PO BID dulaglutide 1.5 mg (0.5 mL) subcut QWEEK 28 days duloxetine 60 mg PO DAILY ezetimibe (Zetia) 10 mg PO DAILY irbesartan-hydrochlorothiazide 300-12.5 mg 1 tab PO DAILY lancets (ApptentiveTouch Delica Plus Lancet) To Test Blood Sugar 4 times a day, As directed. 90 days metformin 500 mg PO BID Tobacco use date assessed: 12/06/23 Dental Screening Dental Screen Date: 11/08/23 [facility] Medical History Sleep apnea Elevated cholesterol HTN (hypertension) Surgical History H/O colonoscopy History of orchiectomy History of hernia surgery Family History Paternal Grandmother FH: mental illness Social History Housing: House Patient Tobacco Use Status: Never used Tobacco e-Cigarette/Vaping Use: Never Used Second Hand Smoke Exposure: No service: No Current occupational status: employed Current occupation: Environmental consulting Current occupational exposures/hazards: No Cognitive needs: No Hearing needs: No Vision needs: No Questionnaire PHQ-9 Over the last 2 weeks, how often have you been bothered by any of the following problems? 1. Little interest or pleasure in doing things: not at all 2. Feeling down, depressed, or hopeless: not at all 3. Trouble falling or staying asleep, or sleeping too much: not at all 4. Feeling tired or having little energy: not at all 5. Poor appetite or overeating: not at all 6. Feeling bad about yourself - or that you are a failure or have let yourself or your family down: not at all 7. Trouble concentrating on things, such as reading the newspaper or watching television: not at all 8. Moving or speaking so slowly that other people could have noticed. Or the opposite - being so fidgety or restless that you have been moving around a lot more than usual: not at all 9. Thoughts that you would be better off or of hurting yourself in some way: not at all Total score: 0 Source: Developed by Drs. Henry Man, Lakisha Kendall, Abel Silva and colleagues, with an educational marlyn from [employer]. Thrive Questionnaire Date Thrive assessed: 09/07/24 I am a: Patient What is your living situation today?: I have a steady place to live Within the past 12 months, did the food you bought not last and you didn't have the money to get more?: Never true Within the past 12 months, did you worry whether your food would run out before you got money to buy more?: Never true Do you have trouble paying for medicines?: No Do you have trouble getting transportation to medical appointments?: No Do you have trouble paying your heating and electricity bill?: No Do you have trouble taking care of your child, family member or friend?: No Do you have trouble with day-to-day activities such as bathing, preparing meals, shopping, managing finances, etc.?: No Are you currently unemployed and looking for a job?: No Are you interested in more education?: No Please select the resources that you would like help with: None Currently or been in a relationship where the following occur: No concerns reported THRIVE Score: 0 ANNIA-7 AMB Questionnaire ANNIA-7 Date ANNIA - 7 assessed: 05/07/23 Trouble relaxin = Not at all Source: Developed by Drs. Henry Man, Lakisha Kendall, Abel Silva and colleagues, with an educational marlyn from [employer]. Physical exam (Primary Care) Vital Signs: Last Vital Signs Temp 97.7 F 10/20/24 09:06 Pulse 82 10/20/24 09:06 Resp 16 10/20/24 09:06 BP 140/62 H 10/20/24 09:06 Pulse Ox 94 10/20/24 09:06 Oxygen Delivery Method Room Air 10/20/24 09:06 BMI result Body Mass Index 38.5 Tobacco/Smoking Status: Tobacco use Status Tobacco use date assessed 12/06/23 10/20/24 09:07 Patient Tobacco Use Status Never used Tobacco 10/20/24 09:07 Tobacco use type 03/18/24 08:55 e-Cigarette/Vaping Use Never Used 10/20/24 09:07 PHQ-9: PHQ-9 Score PHQ-9: Total score 0 10/20/24 09:07 Thrive Assessment: Date of Thrive Assessment Date Thrive assessed 09/07/24 10/20/24 09:07 Currently or been in a relationship where the following occur: No concerns reported Coding Level of Care Code Est Pt Level 4 (34414) Diagnoses Uncontrolled diabetes mellitus with hyperglycemia E11.65 Hypertension I10 CAD (coronary artery disease) I25.10 RUMA (obstructive sleep apnea) G47.33 Assessment & Plan Assessment & Plan (1) Uncontrolled diabetes mellitus with hyperglycemia: Code(s): E11.65 - Type 2 diabetes mellitus with hyperglycemia Category: Medical Plan: A1c?climbed?to?9.2%?as?patient?was?unable?to? get?Trulicity?and?did?not?pursue?it. Will?recent?script?for?Trulicity.??He?will?increase?metformin?from?500?mg?b.i.d. ?to?750?mg?b.i.d.?if?he?is?unable?to?get?this?medication?in?a?timely?fashion. Continue?diabetic?diet?and?exercise (2) Hypertension: Code(s): I10 - Essential (primary) hypertension Category: Medical Plan: Blood?pressure?is?a?little?elevated?today.??Goal?is?less?than?130/80 Generally?his?blood?pressures ?are?controlled.??No?medication?changes?were?made?today Will?continue?to?monitor (3) CAD (coronary artery disease): Code(s): I25.10 - Atherosclerotic heart disease of [place] coronary artery without angina pectoris Category: Medical Plan: Patient?was?seen?by?Cardiology?last?year?and?was?supposed?to?have?follow- up?in?around?April. Referred?him?back?to?Cardiology (4) RUMA (obstructive sleep apnea): Code(s): G47.33 - Obstructive sleep apnea (adult) (pediatric) Category: Medical Plan: Patient?was?not?using?his?new?CPAP?and?so?insurance?has taken?this?back. He?says?he?is?using?his?old?CPAP?still Encouraged?him?to?talk?to?Sleep?Medicine?about?getting?new?CPAP?back Orders: Orders Microalbumin, Random (w Creat) Today I10 - Essential (primary) hypertension Prostate Specific Antigen Scr Today Z12.5 - Encounter for screening for malignant neoplasm of prostate Lipid Panel Today Z00.00 - Encounter for general adult medical examination without abnormal findings UA CC w/rflx Micro + Cult Today Z00.00 - Encounter for general adult medical examination without abnormal findings Comprehensive [place]. Panel Fast Today Z00.00 - Encounter for general adult medical examination without abnormal findings TSH reflex Free T4 Today Z00.00 - Encounter for general adult medical examination without abnormal findings Referrals Cardiology Referral I25.10 - Atherosclerotic heart disease of [place] coronary artery without angina pectoris, R07.9 - Chest pain, unspecified Medications: Changed From metformin 500 mg PO BID 180 tabs 1RF To metformin 750 mg (1.5 x 500 mg) PO BID 270 tabs 2RF 90 days Refilled dulaglutide 1.5 mg (0.5 mL) subcut QWEEK 2 mL 2RF 28 days
== END 2024-10-20 09:27 | disposition home or self-care (01) ==
LOC: HO.HMCFM 08:49
PROVIDERS: PCP Family Medicine; Visit Provider Family Medicine
DX: E11.65 Type 2 diabetes mellitus with hyperglycemia (principal); I10 Essential (primary) hypertension; I25.10 Atherosclerotic heart disease of native coronary artery without angina pectoris; G47.33 Obstructive sleep apnea (adult) (pediatric); E11.9 Type 2 diabetes mellitus without complications

== ENCOUNTER → 2024-10-20 08:48 | Outpatient (BNVA) | payer OTHER, SELFPAY | PROVIDERS: PCP Family Medicine; Visit Provider Family Medicine | DX: E11.65 Type 2 diabetes mellitus with hyperglycemia (principal); I10 Essential (primary) hypertension; I25.10 Atherosclerotic heart disease of native coronary artery without angina pectoris; G47.33 Obstructive sleep apnea (adult) (pediatric); Z79.84 Long term (current) use of oral hypoglycemic drugs | CPT/HCPCS: 83036; 96127 ==

== ENCOUNTER 2024-12-24 11:24 | Outpatient (REF) | payer OTHER, SELFPAY ==
--- OUTSIDE RECORDS SUMMARY | 2024-12-24 12:11 | XMS_ITS | Clinical Summary ---
Author Organization [facility] Address [address] [place] [address] Care Team Providers Care Inspector Electromechanical Name Role Phone Pcp, No Primary Care Provider Unavailabl e Allergies No known active allergies Medications VENTOLIN HFA 108 (90 Base) MCG/ACT inhaler 09/03/2016 Active atorvastatin (LIPITOR) 20 MG tablet 09/03/2016 Active clonazePAM (KlonoPIN) 0.5 MG tablet 0 10/01/2016 Active escitalopram (LEXAPRO) 10 MG tablet 0 07/30/2016 Active Active Problems Problem Noted Date Diagnosed Date Mixed hyperlipidemia 10/18/2016 Anxiety 10/18/2016 RUMA on CPAP 10/18/2016 Examination, physical, employee 10/18/2016 Encounter for occupational h [facility] examination for surveillance of exposure to asbestos 10/18/2016 Social History Tobacco Use Types Packs/Day Years Used Date Smoking Tobacco: Never Alcohol Use Standard Drinks/Week Comments Not Asked 0 (1 standard drink = 0.6 oz pur e alcohol) Sex and Gender Information Value Date Recorded Sex Assigned at Not on file Legal Sex Male 12:52 PM EDT Gender Identity Not on file Sexual Orientation Not on file Last Filed Vital Signs Vital Sign Reading Time Taken Comments Blood Pressure 120/80 10/18/2016 10:02 AM EDT Pulse 86 10/18/2016 10:02 AM EDT Temperature - - Respiratory Rate 16 10/18/2016 10:02 AM EDT Oxygen Saturation 99% 10/18/2016 10:02 AM EDT Inhaled Oxygen Concentration - - Weight 126 kg (277 lb 12.8 oz) 10/18/2016 10:02 AM EDT Height 177.8 cm (5' 10 ) 10/18/2016 10:02 AM EDT Body Mass Index 39.86 10/18/2016 10:02 AM EDT Plan of Treatment Health Maintenance Due Date Last Done Comments Hepatitis C Virus Screening 1966 HIV Screening 1979 DTaP/Tdap/Td Vaccines (1 - Tdap) 1985 Hepatitis B Vaccines (1 of 3 - 19+ 3-dose series) 1985 Pneumococcal Vaccines 50+ (1 of 1 - PCV) 01/24/2016 Zoster (Shingles) Vaccine (1 of 2) 01/24/2016 COVID-19 Vaccine ( season) 02/23/202401/2021, 06/11/2020 Care Teams Inspector Electromechanical Relationship Specialty Start Date End Date Pcp, No PCP - General General Medicine 08/29/16
[2024-12-24 14:49] LABS: Appearance Urine Clear; Glucose Urine UA >=1000 mg/dL (Negative); PH 5.5 (5.0-9.0); Specific Gravity - Urine >= 1.030 (1.005-1.025); UMIC TRIGGER UACC YES
[2024-12-24 16:02] LABS: Alanine Aminotransferase 51 U/L (0-40); Albumin Level 4.2 g/dL (3.5-5.0); Alkaline Phosphatase 89 U/L (39-117); Anion Gap 13 (12-20); Aspartate Amino Transferase 41 U/L (5-37); Blood Urea Nitrogen 15 mg/dL (9-16); Calcium 9.3 mg/dL (8.4-10.2); Carbon Dioxide 25 mmol/L (22-29); Chloride 102 mmol/L (96-108); Cholesterol 260 mg/dL (<200); Estimated Glomerular Filt Rate > 60; HDL Cholesterol 57 mg/dL (>40); Potassium 3.9 mmol/L (3.3-5.1); Sodium 136 mmol/L (135-145); Total Protein 7.0 g/dL (6.5-8.0); Triglycerides 268 mg/dL (<150)
[2024-12-24 16:03] LABS: Microalbum/Creatinine Ratio Ur 16.7 ug/mg cr (<30)
== END 2024-12-24 11:25 | disposition home or self-care (01) ==
LOC: HO.WFDLDS 11:24
PROVIDERS: Referring Provider Internal Medicine Cardiovascular Disease; Visit Provider Family Medicine
DX: Z00.00 Encounter for general adult medical examination without abnormal findings (principal); Z12.5 Encounter for screening for malignant neoplasm of prostate; I10 Essential (primary) hypertension
CPT/HCPCS: 36415; 80053; 80061; 81001; 82043; 82570; 84153; 84443

== ENCOUNTER 2024-12-29 09:00 | Outpatient (AMB) | payer OTHER, SELFPAY ==
--- NOTE | 2024-12-29 09:05 | A.OFFPC_ITS ---
Vital Signs 12/29/24 09:11 Height 5 ft 10 in Weight 261 lb 6 oz BMI 37.5 BP 124/78 Blood Pressure Location Rt brachial Position Sitting Respiration 16 Pulse 84 Pulse Source Pulse Oximeter Temp 98.5 F Temp Source Temporal Artery Scan Pulse Oximetry (%) 97 Oxygen Delivery Method Room Air Intake Visit Reasons: cpe Intake Note: Isaias presents in the office today for his annual physical. Allergies No Known Allergies Allergy (Verified 12/29/24 09:07) Medication List - Last Reconciled 12/29/24 by Blaine Rausch MD blood sugar diagnostic (DSG TechnologiesTouch Ultra Test strips) To Test Blood Sugar 4 times a day, As directed, 90 days blood-glucose meter (Wave System[employer] Ultra2 Meter) To test Blood sugar As directed, 999 days bupropion HCl XL 150 mg PO QAM clonazepam 0.25 mg PO ONCE PRN clonidine HCl 0.1 mg PO BID dulaglutide 3 mg (0.5 mL) subcut QWEEK 28 days duloxetine 60 mg PO DAILY empagliflozin (Jardiance) 10 mg PO QAM irbesartan-hydrochlorothiazide 300-12.5 mg 1 tab PO DAILY lancets (DSG TechnologiesTouch Delica Plus Lancet) To Test Blood Sugar 4 times a day, As directed. 90 days metformin 750 mg (1.5 x 500 mg) PO BID 90 days rosuvastatin 40 mg PO DAILY 90 days Tobacco use date assessed: 12/29/24 Dental Screening Dental Screen Date: 12/29/24 Did you have a dental visit in the last 12 months?: No Did you have a dental problem in the last 6 months where you did not have access to dental care?: No Was dental information given to patient?: Patient declined HPI cpe HPI Details 59 y/o male presents for a CPE with f/u labs and health maintenance. Labs drawn 12/24/24. Reviewed labs with pt. Last A1c 10/20/24 9.2%. He had been out of his Trulicity. A1c today 12/29/24 9.2%. He is on metformin 750mg b.i.d, Jardiance 10mg. He notes ongoing difficulties getting his Trulicity. AST 41, ALT 51. Triglycerides 268. TC 260. LDL 150. HDL 57. PSA 2.05. TSH level 1.97 uIU/mL. Blood pressure today 124/78, 84p. He is on irbesartan-hydrochlorothiazide 300-12.5mg daily. Pt reports some ear discomfort. HPI Comments History of Present Illness Details Documentation assistance for Blaine Rausch MD, was provided by Song Carter,? Clinical Trials Manager on 12/29/2024 at 9:58 AM BLESSING. I, Dr. Rausch, have read, observed, and verified documentation. ?? PFSH Medical History Sleep apnea Elevated cholesterol HTN (hypertension) Surgical History H/O colonoscopy History of orchiectomy History of hernia surgery Family History Paternal Grandmother FH: mental illness Social History (Updated 12/29/24 @ 09:11 by Joy Barrett MA) Housing: House Alcohol intake: current Alcohol intake frequency: holidays/special occasions only Patient Tobacco Use Status: Never used Tobacco e-Cigarette/Vaping Use: Never Used Second Hand Smoke Exposure: No service: No Current occupational status: employed Current occupation: Environmental consulting Current occupational exposures/hazards: No Cognitive needs: No Hearing needs: No Vision needs: No Questionnaire Thrive Questionnaire Date Thrive assessed: 09/07/24 I am a: Patient What is your living situation today?: I have a steady place to live Within the past 12 months, did the food you bought not last and you didn't have the money to get more?: Never true Within the past 12 months, did you worry whether your food would run out before you got money to buy more?: Never true Do you have trouble paying for medicines?: No Do you have trouble getting transportation to medical appointments?: No Do you have trouble paying your heating and electricity bill?: No Do you have trouble taking care of your child, family member or friend?: No Do you have trouble with day-to-day activities such as bathing, preparing meals, shopping, managing finances, etc.?: No Are you currently unemployed and looking for a job?: No Are you interested in more education?: No Please select the resources that you would like help with: None Currently or been in a relationship where the following occur: No concerns reported THRIVE Score: 0 ANNIA-7 AMB Questionnaire ANNIA-7 Date ANNIA - 7 assessed: 05/07/23 Source: Developed by Drs. Henry Man, Lakisha Kendall, Abel Silva and colleagues, with an educational marlyn from [employer]. Review of Systems Const Denies chills, Denies fatigue, Denies fever(s), Denies headache(s) and Denies weakness Eyes Denies change in vision ENT Denies dizziness, Denies headache(s), Denies hearing loss, Denies nasal congestion, Denies sinus pain, Denies sinus pressure and Denies sore throat Card Denies chest pain, Denies lightheadedness, Denies dyspnea and Denies other (palpitations) Resp Denies cough, Denies dyspnea and Denies wheezing GI Denies abdominal pain, Denies melena, Denies hematochezia, Denies change in bowel habits, Denies dyspepsia and Denies nausea Denies hematuria and Denies dysuria Musc Denies abnormal gait, Denies myalgias, Denies arthralgias, Denies numbness and Denies tingling Skin/Breast Denies rash, Denies unusual bruising and Denies wounds Neuro Denies abnormal gait, Denies dizziness, Denies headache(s), Denies memory loss, Denies numbness, Denies Sensory deficit (Neuro), Denies tingling and Denies weakness Psych Denies anxiety, Denies depression and Denies memory loss Endo Denies cold intolerance, Denies fatigue, Denies heat intolerance, Denies polydipsia and Denies polyuria Jeremy/Lymph Denies easy bleeding and Denies easy bruising Aller/Immun Denies wheezing Physical exam (Primary Care) Vital Signs: Last Vital Signs Temp 98.5 F 12/29/24 09:11 Pulse 84 12/29/24 09:11 Resp 16 12/29/24 09:11 BP 124/78 12/29/24 09:11 Pulse Ox 97 12/29/24 09:11 Oxygen Delivery Method Room Air 12/29/24 09:11 BMI result Body Mass Index 37.5 Tobacco/Smoking Status: Tobacco use Status Tobacco use date assessed 12/29/24 12/29/24 09:14 Patient Tobacco Use Status Never used Tobacco 12/29/24 09:11 Tobacco use type 03/18/24 08:55 e-Cigarette/Vaping Use Never Used 12/29/24 09:11 Thrive Assessment: Date of Thrive Assessment Date Thrive assessed 09/07/24 12/29/24 09:07 Currently or been in a relationship where the following occur: No concerns reported Const General: no acute distress, well developed, alert and awake Nutritional Appearance: well nourished and obese Orientation/consciousness: patient oriented x3 HENMT Head: Yes normocephalic and Yes atraumatic Ears: hearing grossly normal bilaterally and TM's normal bilaterally General nose exam: Normal external nose present and Normal nares present Mouth: Normal oral and palatal mucosa present and moist mucous membranes Teeth and gingiva: dentition normal Throat: Yes posterior oropharynx normal Eyes General: appearance normal, both eyes and all related structures Pupils: Equal, round and reactive pupils present and Pupil accommodation reflex normal EOM: EOMs intact bilaterally Neck Neck: Yes normal visual inspection, Yes no lymphadenopathy and Yes trachea midline Thyroid: Thyroid normal Carotids: no bruits Lymphatic: no lymphadenopathy noted Chest Chest palpation & inspection: normal inspection of the chest Resp Effort & Inspection: normal respiratory effort Auscultation: clear to auscultation bilaterally Cardio Rate: regular rate Rhythm: regular rhythm Heart sounds: S1 normal heart sound present, S2 normal heart sound present, no gallops, no murmurs and no rubs Bruits: no abdominal aortic bruits and no carotid bruits GI Palpation (GI): No Abdominal aortic bruit present, Soft to palpation, nontender, No hepatosplenomegaly present and No Rebound tenderness present Auscultation: normal bowel sounds General: Yes no CVA tenderness Back/Spine/Pelvis Back: no CVA tenderness Cervical Spine: cervical ROM normal and No Cervical spine tenderness Thoracic/Lumbar Spine: thoraco-lumbar ROM normal, No pain with thoraco-lumbar ROM, No thoracic spinal tenderness and No lumbar spinal tenderness Skin Lesions: no lesions Rashes: no rashes Trauma: no lacerations or abrasions Wounds: no wounds Nails: normal Neuro General: patient oriented x3 Cranial nerves: Yes Equal, round and reactive pupils present Cognition (Neuro): normal cognition Gait exam (Neuro): Normal gait present Motor exam (neuro): 5/5 motor strength present throughout Sensory Exam: No Sensory deficit (Neuro) Deep tendon reflexes (DTR's): Right patellar reflex intensity grade: 2+ and Left patellar reflex intensity grade: 2+ Extrem General: Yes normal to inspection and No edema Psych Appearance: grossly normal Affect: normal affect Attitude: cooperative Thought process: Normal thought process present Coding Level of Care Code Est Pt Level 3 (57514) Est Pt Prev Care 40-64y(56949) Diagnoses Adult general medical exam Z00.00 Uncontrolled diabetes mellitus with hyperglycemia E11.65 Hypertension I10 Elevated liver enzymes R74.8 Cerumen debris on tympanic membrane H61.20 CAD (coronary artery disease) I25.10 Hyperlipidemia E78.5 Screening for colon cancer Z12.11 Screening for prostate cancer Z12.5 Assessment & Plan Assessment & Plan (1) Adult general medical exam: Code(s): Z00.00 - Encounter for general adult medical examination without abnormal fi ndings Category: Medical Plan: 59-year-old male presents for complete physical exam Encouraged healthy diet with active lifestyle and plenty of exercise (2) Uncontrolled diabetes mellitus with hyperglycemia: Code(s): E11.65 - Type 2 diabetes mellitus with hyperglycemia Category: Medical Plan: A1c is 9.2%. Uncontrolled. Goal is less than 7.0%. Patient says he is taking his medications except notes that he has been having difficulty getting Trulicity. Will refill Trulicity with increased additional refills. Also increasing dose of Trulicity. Continue your other medications as prescribed Encouraged that diabetic diet and weight loss Patient is due for an eye exam and I encouraged him to get his eye exam scheduled. (3) Hypertension: Code(s): I10 - Essential (primary) hypertension Category: Medical Plan: Blood pressure is controlled. Goal is less than 130/80 Continue current medications (4) Elevated liver enzymes: Code(s): R74.8 - Abnormal levels of other serum enzymes Category: Medical Plan: Liver enzymes are elevated. Encouraged weight loss Will check ultrasound (5) Cerumen debris on tympanic membrane: Code(s): H61.20 - Impacted cerumen, unspecified ear Category: Medical Plan: Try Debrox drops (6) CAD (coronary artery disease): Code(s): I25.10 - Atherosclerotic heart disease of [place] coronary artery without angina pectoris Category: Medical Plan: Patient was seen in 2023 and appears to have been lost to follow-up. I made a referral in September 2024. Patient has not been contacted yet. Asking office support assistant to facilitate this. (7) Hyperlipidemia: Code(s): E78.5 - Hyperlipidemia, unspecified Category: Medical Plan: Lipids are still too high with LDL 150. Goal less than 70. Change atorvastatin to rosuvastatin. Will follow-up in 3 months. May also need Zetia - will discuss at next visit (8) Screening for colon cancer: Code(s): Z12.11 - Encounter for screening for malignant neoplasm of colon Category: Medical Plan: Patient was seen in 2021 for colonoscopy and recommended 5 year follow-up. Follow-up in 2026 Up-to-date (9) Screening for prostate cancer: Code(s): Z12.5 - Encounter for screening for malignant neoplasm of prostate Category: Medical Plan: PSA is below 4 Will continue annual screening Orders: Orders Hemoglobin A1c Today E11.65 - Type 2 diabetes mellitus with hyperglycemia, R73.01 - Impaired fasting glucose Microalbumin, Random (w Creat) Today I10 - Essential (primary) hypertension, I25.10 - Atherosclerotic heart disease of [place] coronary artery without angina pectoris US abdomen granados w elastography Today R74.8 - Abnormal levels of other serum enzymes AMB Hemoglobin A1c Today E11.65 - Type 2 diabetes mellitus with hyperglycemia, E11.9 - Type 2 diabetes mellitus without complications Lipid Panel Today I25.10 - Atherosclerotic heart disease of [place] coronary artery without angina pectoris, Z00.00 - Encounter for general adult medical examination without abnormal findings Comprehensive Niotaze. Panel Fast Today I25.10 - Atherosclerotic heart disease of [place] coronary artery without angina pectoris, Z00.00 - Encounter for general adult medical examination without abnormal findings Medications: New rosuvastatin 40 mg PO DAILY 90 tabs 3RF 90 days Changed From dulaglutide 1.5 mg (0.5 mL) subcut QWEEK 28 days 2 mL 2RF To dulaglutide 3 mg (0.5 mL) subcut QWEEK 2 mL 6RF 28 days Discontinued atorvastatin Discontinued Reason: Doctor's Order 80 mg PO DAILY 90 days 90 tabs 2RF
[2024-12-29 09:11] VITALS: BP 124/78; PULSE 84; RESP 16; TEMP 36.9; O2SAT 97; BMI 37.5
--- OUTSIDE RECORDS SUMMARY | 2024-12-29 09:22 | XMS_ITS | Clinical Summary ---
Author Organization [facility] Address [address] [place] [address] Care Team Providers Care Imposer Name Role Phone Pcp, No Primary Care [...] physical, employee 10/18/2016 Encounter for occupational h [facility] examination for surveillance of exposure to asbestos [...] Vaccine ( season) 02/23/202401/2021, 06/11/2020 Care Teams Imposer Relationship Specialty Start Date End Date Pcp, No PCP - General General Medicine 08/29/16
== END 2024-12-29 10:17 | disposition home or self-care (01) ==
LOC: HO.HMCFM 09:01
PROVIDERS: PCP Family Medicine; Visit Provider Family Medicine
DX: Z00.00 Encounter for general adult medical examination without abnormal findings (principal); E11.65 Type 2 diabetes mellitus with hyperglycemia; I10 Essential (primary) hypertension; R74.8 Abnormal levels of other serum enzymes; H61.23 Impacted cerumen, bilateral; I25.10 Atherosclerotic heart disease of native coronary artery without angina pectoris; E78.5 Hyperlipidemia, unspecified; Z12.11 Encounter for screening for malignant neoplasm of colon; Z12.5 Encounter for screening for malignant neoplasm of prostate

== ENCOUNTER 2025-02-01 12:39 | Outpatient (AMB) | payer OTHER, SELFPAY ==
--- OUTSIDE RECORDS SUMMARY | 2025-02-01 12:42 | XMS_ITS | Clinical Summary ---
Author Organization [facility] Address [address] [place] [address] Care Team Providers Care Can Carrier Name Role Phone Pcp, No Primary Care [...] physical, employee 10/18/2016 Encounter for occupational h [facility] examination for surveillance of exposure to [...] Vaccine ( season) 02/23/202401/2021, 06/11/2020 Care Teams Can Carrier Relationship Specialty Start Date End Date Pcp, No PCP - General General Medicine 08/29/16
[2025-02-01 12:47] VITALS: BP 122/78; PULSE 74; BMI 37.2
--- NOTE | 2025-02-01 12:47 | MHC.OFFVIS ---
Vital Signs 02/01/25 12:47 Height 5 ft 10 in Weight 259 lb 4.218 oz BMI 37.2 BP 122/78 Blood Pressure Location Lt brachial Position Sitting Pulse 74 Pulse Source Monitor Intake Visit Reasons: 1 year fu Intake Note: 1 year Follow Up. Pulpwood Dealer Required: No Allergies No Known Allergies Allergy (Verified 02/01/25 12:49) Medication List - Last Reconciled 02/01/25 by Michael Martinez MD blood sugar diagnostic ([employer]Touch Ultra Test strips) To Test Blood Sugar 4 times a day, As directed, 90 days blood-glucose meter ([employer] EnergyTouch Ultra2 Meter) To test Blood sugar As directed, 999 days bupropion HCl XL 150 mg PO QAM clonazepam 0.25 mg PO ONCE PRN clonidine HCl 0.1 mg PO BID dulaglutide 3 mg (0.5 mL) subcut QWEEK 28 days duloxetine 60 mg PO DAILY empagliflozin (Jardiance) 10 mg PO QAM irbesartan-hydrochlorothiazide 300-12.5 mg 1 tab PO DAILY lancets (OneTouch Delica Plus Lancet) To Test Blood Sugar 4 times a day, As directed. 90 days metformin 750 mg (1.5 x 500 mg) PO BID 90 days rosuvastatin 40 mg PO DAILY 90 days HPI Comments Details: Isaias comes for follow-up. He comes after a long gap. Underwent a coronary CTA last year which showed nonobstructive disease is mostly 25% plaques and multiple different coronary artery distributions. He has not had any significant exertional chest pain since then. He said he does not exercise regularly but does a lot of physical work. Denies any worsening shortness of breath. Currently now on a more aggressive treatment for diabetes which is still not well controlled. He is on high-intensity statin therapy. Blood pressure is well optimized. Denies any heart failure symptoms. He is trying to lose weight. [facility] Medical History Sleep apnea Elevated cholesterol HTN (hypertension) Surgical History H/O colonoscopy History of orchiectomy History of hernia surgery Family History Paternal Grandmother FH: mental illness Social History Housing: House Alcohol intake: current Alcohol intake frequency: holidays/special occasions only Patient Tobacco Use Status: Never used Tobacco e-Cigarette/Vaping Use: Never Used Second Hand Smoke Exposure: No service: No Current occupational status: employed Current occupation: Environmental consulting Current occupational exposures/hazards: No Cognitive needs: No Hearing needs: No Vision needs: No Review of Systems Const Denies daytime sleepiness, Denies difficulty sleeping, Denies snoring, Denies stops breathing during sleep and Denies weakness Card Denies chest pain, Denies rapid heart rate, Denies irregular heart rhythm, Denies claudication, Denies leg edema, Denies lightheadedness, Denies palpitations, Denies dyspnea, Denies dyspnea on exertion, Denies orthopnea, Denies paroxysmal nocturnal dyspnea and Denies slow heart rate Resp Denies cough, Denies dyspnea, Denies dyspnea on exertion and Denies snoring GI Reports no additional complaints, Denies hematochezia, Denies change in stool character and Denies dyspepsia Musc Denies abnormal gait, Denies muscle weakness and Denies numbness Neuro Denies Abnormal speech present, Denies abnormal gait, Denies numbness and Denies weakness Endo Denies palpitations Physical Exam Vital Signs: Last Vital Signs Pulse 74 02/01/25 12:47 BP 122/78 02/01/25 12:47 BMI result Body Mass Index 37.2 Const General: cooperative, comfortable, no acute distress, alert, awake and Physically active Nutritional Appearance: obese Orientation/consciousness: patient oriented x3 Limitations: no limitations HEENT Head: Yes normocephalic and Yes atraumatic Neck Neck: Yes trachea midline, Yes supple and Yes no JVD Resp Effort & Inspection: normal respiratory effort Auscultation: clear to auscultation bilaterally Cardio Jugular venous distension: no JVD Palpation: normal PMI Rate: regular rate Rhythm: regular rhythm Heart sounds: S1 normal heart sound present, S2 normal heart sound present, no click, no gallops, no murmurs and no rubs GI Auscultation: normal bowel sounds Skin General skin exam: no rashes or lesions noted Neuro General: patient oriented x3 and no focal motor deficits Speech: No Abnormal speech present Extrem General: Yes no clubbing, cyanosis or edema Psych Appearance: grossly normal Office Procedures EKG Details: EKG shows normal sinus rhythm with normal EKG [id number], Complete Assessment & Plan Assessment & Plan (1) CAD (coronary artery disease): Code(s): I25.10 - Atherosclerotic heart disease of [place] coronary artery without angina pectoris Category: Medical Plan: Nonobstructive CAD by coronary CTA. Discussed management and pathophysiology of coronary artery disease importance of aggressive treatment of his risk factors need to be pursued. Also suggested him to be on low-dose aspirin therapy. Aggressive control of diabetes goal hemoglobin A1c less than 7%. Aggressive weight loss program needs to be pursued. I agree with GLP 1 antagonist treatment for his combined atherosclerotic disease with diabetes. Continue aggressive management high blood pressure with current therapy. Importance of good blood pressure control was discussed. Advised to monitor blood pressure at home maintain a log. Goal blood pressure less than 130/84. Continue high-intensity statin therapy with target goal LDL less than 60 mg/dL. Symptoms of acute coronary syndrome were discussed. He understands agrees. Recommend to participate in regular physical activity. Will follow up in the clinic in 1 year's time, sooner p.r.n.. Thank you for allowing me to partake in his care Medications: New aspirin (Ecotrin Low Strength) 81 mg PO DAILY 30 tabs 11RF Coding Level of Care Code Est Pt Level 4 (19506) Complex EM visit Add On G2211 Diagnoses CAD (coronary artery disease) I25.10 CPT Codes EKG - CPT: 67243-[id number], Complete ([id number])
== END 2025-02-01 13:13 | disposition home or self-care (01) ==
LOC: HO.HCS 12:40
PROVIDERS: PCP Family Medicine; Visit Provider Internal Medicine Cardiovascular Disease
DX: I25.10 Atherosclerotic heart disease of native coronary artery without angina pectoris (principal)
CPT/HCPCS: 93010; 99214

== ENCOUNTER → 2025-02-01 12:39 | Outpatient (BNVA) | payer OTHER, SELFPAY | PROVIDERS: PCP Family Medicine; Visit Provider Internal Medicine Cardiovascular Disease | DX: I25.10 Atherosclerotic heart disease of native coronary artery without angina pectoris (principal) | CPT/HCPCS: 93005 ==

== ENCOUNTER 2025-04-27 10:05 | Outpatient (REF) | payer OTHER, SELFPAY ==
--- NOTE | ~2025-04-27 | US_ITS ---
EXAMINATION: US ABDOMEN LIMITED WITH LIVER ELASTOGRAPHY HISTORY: R74.8 - Abnormal levels of other serum enzymes TECHNIQUE: Real-time grayscale ultrasound imaging of the right upper quadrant was performed and images were reviewed. COMPARISON: There are no prior studies available for comparison. FINDINGS: Liver: The right lobe of the liver measures 16.8 cm in size. The left lobe of the liver measures 10.2 cm in size. The liver demonstrates increased echotexture, consistent with steatosis. There are multiple areas of focal fatty sparing. No focal mass or intrahepatic biliary ductal dilatation is identified. There is normal hepatopedal flow in the portal vein. Ultrasound elastography of the liver was attempted multiple times. However, elastography could not be performed due to patient body habitus. Gallbladder and biliary tree: The gallbladder is unremarkable, without evidence of calculi, wall thickening, or pericholecystic fluid. There is no sonographic Thomas sign. The common bile duct is normal in caliber measuring 3 mm. Right Kidney: The right kidney measures 12.9 cm in length. The right kidney is unremarkable, without evidence of masses, hydronephrosis, or calculi. Pancreas: The pancreas is not well visualized. Abdominal aorta and inferior vena cava: The visualized portions of the abdominal aorta and inferior vena cava are normal in caliber. There is no free fluid in the right upper quadrant. US/US abdomen granados w elastography IMPRESSION: Hepatomegaly and hepatic steatosis. Multiple attempts were made to perform elastography. However, this was unsuccessful due to patient body habitus. Electronically signed by: Henry Prasad MD 04/27/2025 10:54 AM BLESSING
--- OUTSIDE RECORDS SUMMARY | 2025-04-27 11:44 | XMS_ITS | Clinical Summary ---
Author Organization [facility] Address [address] [place] [address] Care Team Providers Care Call Worker Name Role Phone Pcp, No Primary Care [...] physical, employee 10/18/2016 Encounter for occupational h [facility] examination for surveillance of exposure to [...] Vaccine (1 of 2) 01/24/2016 COVID-19 Vaccine (3 - season) 02/22/202501/2021, 06/11/2020 RSV Vaccine 50 years and old er and Patients (1 - 1-dose 75+ series) 2041 Care Teams Call Worker Relationship Specialty Start Date End Date Pcp, No PCP - General General Medicine 08/29/16
--- OUTSIDE RECORDS SUMMARY | 2025-04-27 11:44 | XMS_ITS | Encounter Summary ---
Author Organization [facility] Address [address] [place] [id number] Care Team Providers Care Sales Account Coordinator Name Role Phone Pcp, No Primary Care Provider Unavailabl e Encounter Details Date Type Department Care Team (Late st Contact Info) Description 08/12/2019 Scanned Document [address] [id number] Dianne Haro MD [address] [place] [id number] Social History Tobacco Use Types Packs/Day Years Used Date Smoking Tobacco: Never Alcohol Use Standard Drinks/Week Comments Not Asked 0 (1 standard drink = 0.6 oz pur e alcohol) Sex and Gender Information Value Date Recorded Sex Assigned at Not on file Legal Sex Male 12:52 PM EDT Gender Identity Not on file Sexual Orientation Not on file documented as of this encounter Plan of Treatment Not on file documented as of this encounter Visit Diagnoses Not on filedocumented in this encounter Care Teams Sales Account Coordinator Relationship Specialty Start Date End Date Pcp, No PCP - General General Medicine 08/29/16 documented as of this encounter
== END 2025-04-27 10:06 | disposition home or self-care (01) ==
LOC: HO.US 10:05
PROVIDERS: PCP Family Medicine; Visit Provider Family Medicine
DX: R74.8 Abnormal levels of other serum enzymes (principal)
CPT/HCPCS: 76705; 76981

== ENCOUNTER → 2025-04-27 10:08 | Outpatient (BNV) | payer OTHER, SELFPAY | PROVIDERS: PCP Family Medicine; Visit Provider Radiology Diagnostic Radiology | DX: R16.0 Hepatomegaly, not elsewhere classified (principal); K76.0 Fatty (change of) liver, not elsewhere classified | CPT/HCPCS: 76705 ==

== ENCOUNTER 2025-05-28 11:45 | Outpatient (REF) | payer OTHER, SELFPAY ==
[2025-05-28 14:20] LABS: Appearance Urine Clear; Glucose Urine UA >=1000 mg/dL (Negative); PH 7.5 (5.0-9.0); Specific Gravity - Urine 1.025 (1.005-1.025); UMIC TRIGGER UACC YES
[2025-05-28 17:18] LABS: Microalbum/Creatinine Ratio Ur 61.2 ug/mg cr (<30)
[2025-05-28 17:30] LABS: Alanine Aminotransferase 41 U/L (0-40); Albumin Level 4.3 g/dL (3.5-5.0); Alkaline Phosphatase 78 U/L (39-117); Anion Gap 12 (12-20); Aspartate Amino Transferase 33 U/L (5-37); Blood Urea Nitrogen 12 mg/dL (9-16); Calcium 9.3 mg/dL (8.4-10.2); Carbon Dioxide 28 mmol/L (22-29); Chloride 104 mmol/L (96-108); Cholesterol 204 mg/dL (<200); Estimated Glomerular Filt Rate > 60; HDL Cholesterol 56 mg/dL (>40); Potassium 4.0 mmol/L (3.3-5.1); Sodium 140 mmol/L (135-145); Total Protein 7.1 g/dL (6.5-8.0); Triglycerides 268 mg/dL (<150)
== END 2025-05-28 11:46 | disposition home or self-care (01) ==
LOC: HO.WFDLDS 11:45
PROVIDERS: Visit Provider Family Medicine
DX: Z00.00 Encounter for general adult medical examination without abnormal findings (principal); I10 Essential (primary) hypertension; I25.10 Atherosclerotic heart disease of native coronary artery without angina pectoris; E11.65 Type 2 diabetes mellitus with hyperglycemia
CPT/HCPCS: 36415; 80053; 80061; 81001; 82043; 82570; 83036

== ENCOUNTER 2025-06-03 11:47 | Outpatient (AMB) | payer OTHER, SELFPAY ==
--- NOTE | 2025-06-03 11:50 | A.OFFPC_ITS ---
Vital Signs 06/03/25 11:55 Height 5 ft 10 in Weight 269 lb BMI 38.6 BP 134/74 Blood Pressure Location Rt brachial Position Sitting Respiration 18 Pulse 80 Pulse Source Pulse Oximeter Temp 98.1 F Temp Source Oral Pulse Oximetry (%) 96 Oxygen Delivery Method Room Air Intake Visit Reasons: f/u HLD, liver enzymes, diabetes Intake Note: Patient present for HLD, liver enymes and diabetes. 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 Accompanied by: Self / Same As Patient Allergies No Known Allergies Allergy (Verified 06/03/25 11:54) Medication List - Last Reconciled 06/03/25 by Blaine Rausch MD aspirin (Ecotrin Low Strength) 81 mg PO DAILY blood sugar diagnostic ([employer] MedicalTouch Ultra Test strips) To Test Blood Sugar 4 times a day, As directed, 90 days blood-glucose meter ([employer] Ultra2 Meter) To test Blood sugar As directed, 999 days bupropion HCl XL 150 mg PO QAM clonazepam 0.25 mg PO ONCE PRN clonidine HCl 0.1 mg PO BID dulaglutide 3 mg (0.5 mL) subcut QWEEK 28 days duloxetine 60 mg PO DAILY empagliflozin 25 mg PO QAM 90 days irbesartan-hydrochlorothiazide 300-12.5 mg 1 tab PO DAILY lancets ([employer] MedicalTouch Delica Plus Lancet) To Test Blood Sugar 4 times a day, As directed. 90 days metformin 750mg (1.5 tabs) AM and 1000mg (2 tabs) PM orally 2 times a day; 90 days rosuvastatin 40 mg PO DAILY 90 days Tobacco use date assessed: 12/29/24 Dental Screening Dental Screen Date: 12/29/24 HPI f/u HLD, liver enzymes, diabetes HPI Details 60 y/o male presents to f/u HLD, liver e nzymes, diabetes. Labs drawn 05/28/25. Reviewed labs with pt. A1c 8.3%. He is on metformin 750mg b.i.d, Jardiance 10mg, dulaglutide 3mg. AST 33. ALT 41. Triglycerides 268. TC 204. LDL 95. HDL 56. Has not seen his eye doctor in a couple years. Blood pressure today 134/74, 80p. He is on irbesartan-HCTZ 300-12.5mg daily. [facility] Medical History Sleep apnea Elevated cholesterol HTN (hypertension) Surgical History H/O colonoscopy History of orchiectomy History of hernia surgery Family History Paternal Grandmother FH: mental illness Social History Housing: House Alcohol intake: current Alcohol intake frequency: holidays/special occasions only Patient Tobacco Use Status: Never used Tobacco e-Cigarette/Vaping Use: Never Used Second Hand Smoke Exposure: No service: No Current occupational status: employed Current occupation: Environmental consulting Current occupational exposures/hazards: No Cognitive needs: No Hearing needs: No Vision needs: No Questionnaire PHQ-9 Over the last 2 weeks, how often have you been bothered by any of the following problems? 1. Little interest or pleasure in doing things: not at all 2. Feeling down, depressed, or hopeless: not at all 3. Trouble falling or staying asleep, or sleeping too much: not at all 4. Feeling tired or having little energy: not at all 5. Poor appetite or overeating: not at all 6. Feeling bad about yourself - or that you are a failure or have let yourself or your family down: not at all 7. Trouble concentrating on things, such as reading the newspaper or watching television: not at all 8. Moving or speaking so slowly that other people could have noticed. Or the opposite - being so fidgety or restless that you have been moving around a lot more than usual: not at all 9. Thoughts that you would be better off or of hurting yourself in some way: not at all Total score: 0 Depression Screening Interpretation: Negative Depression Screening Done: Yes 60620 - PHQ-9 Billing: Yes Source: Developed by Drs. Henry Man, Lakisha Kendall, Abel Silva and colleagues, with an educational marlyn from [email or web address]. Thrive Questionnaire Date Thrive assessed: 09/07/24 I am a: Patient What is your living situation today?: I have a steady place to live Within the past 12 months, did the food you bought not last and you didn't have the money to get more?: Never true Within the past 12 months, did you worry whether your food would run out before you got money to buy more?: Never true Do you have trouble paying for medicines?: No Do you have trouble getting transportation to medical appointments?: No Do you have trouble paying your heating and electricity bill?: No Do you have trouble taking care of your child, family member or friend?: No Do you have trouble with day-to-day activities such as bathing, preparing meals, shopping, managing finances, etc.?: No Are you currently unemployed and looking for a job?: No Are you interested in more education?: No Please select the resources that you would like help with: None Currently or been in a relationship where the following occur: No concerns reported THRIVE Score: 0 AUDIT C Alcohol Use Questionnaire (AUDIT-C) 1. How often do you have a drink containing alcohol?: 2-4 times a month 3. How often do you have six or more drinks on one occasion?: Never Total Score: 2 ANNIA-7 AMB Questionnaire ANNIA-7 Date ANNIA - 7 assessed: 05/07/23 Source: Developed by Drs. eHnry Man, Lakisha Kendall, Abel Silva and colleagues, with an educational marlyn from [email or web address]. Review of Systems Const Denies chills, Denies fatigue, Denies fever(s), Denies headache(s) and Denies weakness ENT Denies dizziness and Denies headache(s) Card Denies dyspnea Resp Denies cough, Denies dyspnea, Denies wheezing and Denies other (shortness of breath) Musc Denies numbness and Denies tingling Neuro Denies dizziness, Denies headache(s), Denies numbness, Denies tingling and Denies weakness Psych Denies anxiety and Denies depression Endo Denies fatigue Aller/Immun Denies wheezing Physical exam (Primary Care) Vital Signs: Last Vital Signs Temp 98.1 F 06/03/25 11:55 Pulse 80 06/03/25 11:55 Resp 18 06/03/25 11:55 BP 134/74 06/03/25 11:55 Pulse Ox 96 06/03/25 11:55 Oxygen Delivery Method Room Air 06/03/25 11:55 BMI result Body Mass Index 38.6 Tobacco/Smoking Status: Tobacco use Status Tobacco use date assessed 12/29/24 06/03/25 11:51 Patient Tobacco Use Status Never used Tobacco 06/03/25 11:55 Tobacco use type 03/18/24 08:55 e-Cigarette/Vaping Use Never Used 06/03/25 11:55 PHQ-9: PHQ-9 Score PHQ-9: Total score 0 06/03/25 12:01 Depression Screening Interpretation: Negative Thrive Assessment: Date of Thrive Assessment Date Thrive assessed 09/07/24 06/03/25 11:51 Currently or been in a relationship where the following occur: No concerns reported Const General: well developed; No acute distress Nutritional Appearance: well nourished Orientation/consciousness: patient oriented x3 HENMT Head: Yes normocephalic and Yes atraumatic Eyes General: appearance normal, both eyes and all related structures Pupils: Equal, round and reactive pupils present EOM: EOMs intact bilaterally Resp Effort & Inspection: normal respiratory effort Neuro General: patient oriented x3 and gait normal Cranial nerves: Yes Equal, round and reactive pupils present Psych Affect: normal affect Coding Level of Care Code Est Pt Level 4 (64445) Diagnoses Hypertension I10 CAD (coronary artery disease) I25.10 Hyperlipidemia E78.5 Diabetes E11.9 Elevated liver enzymes R74.8 Obesity E66.9 Additional Codes PHQ-9 - 60902 - PHQ-9 Billing: Yes ([id number]) Assessment & Plan Assessment & Plan (1) Hypertension: Code(s): I10 - Essential (primary) hypertension Category: Medical Plan: Blood pressure is fairly well controlled. Goal is less than 130/80 Continue current medication regimen Work at weight loss and salt/sodium avoidance (2) CAD (coronary artery disease): Code(s): I25.10 - Atherosclerotic heart disease of [place] coronary artery without angina pectoris Category: Medical Plan: Followed by cardiology We discussed blood pressure control, blood sugar control and lipids. Discussed weight loss and salt/sodium avoidance Follow-up with Cardiology as recommended (3) Hyperlipidemia: Code(s): E78.5 - Hyperlipidemia, unspecified Category: Medical Plan: LDL cholesterol is improved though still above goal of less than 70 Will add Zetia. Continue rosuvastatin (4) Diabetes: Code(s): E11.9 - Type 2 diabetes mellitus without complications Category: Medical Plan: A1c is 8.3%. Still well above goal of less than 7% Will increase Jardiance and his evening dose of metformin. Continue Trulicity and work at better compliance with these Encouraged weight loss, exercise and diet low in sugars and starches Patient has not seen his eye doctor in a couple of years. Recommended he give them a call to follow-up for diabetic retinal exam. Patient agrees (5) Elevated liver enzymes: Code(s): R74.8 - Abnormal levels of other serum enzymes Category: Medical Plan: Liver enzymes have been improving Continue good hydration and I encouraged weight loss Will continue to monitor (6) Obesity: Code(s): E66.9 - Obesity, unspecified Category: Medical Plan: Patient gained about 10 lb in the last 4 months. Will refer to weight management Plan We also discussed elevated microalbumin level. Will recheck with next set of labs Orders: Orders Microalbumin, Random (w Creat) Today I10 - Essential (primary) hypertension, I25.10 - Atherosclerotic heart disease of [place] coronary artery without angina pectoris Lipid Panel Today I25.10 - Atherosclerotic heart disease of [place] coronary artery without angina pectoris, Z00.00 - Encounter for general adult medical examination without abnormal findings Comprehensive [place]. Panel Fast Today I25.10 - Atherosclerotic heart disease of [place] coronary artery without angina pectoris, Z00.00 - Encounter for general adult medical examination without abnormal findings Referrals Medical Weight Management Referral E11.65 - Type 2 diabetes mellitus with hyperglycemia, E66.9 - Obesity, unspecified, I25.10 - Atherosclerotic heart disease of [place] coronary artery without angina pectoris, Z68.38 - Body mass index [BMI] 38.0-38.9, adult Medications: New ezetimibe (Zetia) 10 mg PO DAILY 90 tabs 3RF 90 days Changed From empagliflozin (Jardiance) 10 mg PO QAM 90 days 90 tabs 3RF To empagliflozin 25 mg PO QAM 90 tabs 3RF 90 days From metformin 750 mg (1.5 x 500 mg) PO BID 90 days 270 tabs 2RF To metformin 750mg (1.5 tabs) AM and 1000mg (2 tabs) PM orally 2 times a day; 270 tabs 2RF 90 days From dulaglutide 3 mg (0.5 mL) subcut QWEEK 28 days 2 mL 6RF To dulaglutide 3 mg (0.5 mL) subcut QWEEK 6 mL 6RF 84 days Refilled rosuvastatin 40 mg PO DAILY 90 tabs 3RF 90 days
[2025-06-03 11:55] VITALS: BP 134/74; PULSE 80; RESP 18; TEMP 36.7; O2SAT 96; BMI 38.6
--- OUTSIDE RECORDS SUMMARY | 2025-06-03 18:17 | XMS_ITS | Encounter Summary ---
Author Organization [facility] Address [address] [place] [id number] Care Team Providers Care Flower Buncher Or Picker Name Role Phone Pcp, No Primary Care Provider Unavailabl e Encounter Details Date Type Department Care Team (Late st Contact Info) Description 08/12/2019 Scanned Document [address] [id number] Dianne Haro MD [address] [place] [id number] Social History Tobacco Use Types Packs/Day Years [...] on filedocumented in this encounter Care Teams Flower Buncher Or Picker Relationship Specialty Start Date End Date Pcp, No PCP - General General Medicine 08/29/16 documented as of this encounter
--- OUTSIDE RECORDS SUMMARY | 2025-06-03 18:17 | XMS_ITS | Clinical Summary ---
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 examination for surveillance of exposure to [...] - 1-dose 75+ series) 2041 Care Teams Owner Operator Tanker Truck Driver Relationship Specialty Start Date End Date Pcp, No PCP - General General Medicine 08/29/16
== END 2025-06-03 12:32 | disposition home or self-care (01) ==
LOC: HO.HMCFM 11:48
PROVIDERS: PCP Family Medicine; Visit Provider Family Medicine
DX: E11.69 Type 2 diabetes mellitus with other specified complication (principal); I10 Essential (primary) hypertension; E66.9 Obesity, unspecified; Z68.38 Body mass index [BMI] 38.0-38.9, adult; I25.10 Atherosclerotic heart disease of native coronary artery without angina pectoris; E78.5 Hyperlipidemia, unspecified; R74.8 Abnormal levels of other serum enzymes

== ENCOUNTER → 2025-06-03 11:47 | Outpatient (BNVA) | payer OTHER, SELFPAY | PROVIDERS: PCP Family Medicine; Visit Provider Family Medicine | DX: Z13.31 Encounter for screening for depression (principal) | CPT/HCPCS: 96127 ==